=== PATIENT | female | born 1945 | race Caucasian/White ===

== ENCOUNTER 2017-02-13 19:34 | Outpatient (CLI) | payer MEDICARE ==
[2017-02-14 12:53] LABS: INR-International Normal Ratio 3.5; Prothrombin Time 37.2 SEC (12.0-14.7)
== END 2017-02-13 19:35 | disposition home or self-care (01) ==
LOC: BURLABSP 19:34
PROVIDERS: ATTEND Internal Medicine
DX: Z51.81 Encounter for therapeutic drug level monitoring (principal); Z79.01 Long term (current) use of anticoagulants
CPT/HCPCS: 85610

== ENCOUNTER 2018-07-17 10:23 | Inpatient (IN) | payer MEDICARE, MEDICAID ==
[2018-07-17 11:09] LABS: #Basophils 0.1 thou/uL (0.0-0.2); #Eosinphils 0.1 thou/uL (0.0-0.7); #Lymphocytes 1.6 thou/uL (1.20-3.40); #Monocytes 0.5 thou/uL (0.11-0.59); #Neutrophils 4.3 thou/uL (1.40-6.50); %Basophils 1.5 % (0.0-1.0); %Eosinophils 0.9 % (0.0-10.0); %Lymphocytes 24.1 % (21.0-51.0); %Monocytes 7.3 % (0.0-10.0); %Neutrophils 66.2 % (42.0-75.0); Hemoglobin 13.5 g/dL (12.0-16.0); Mean Corpuscular HGB CONC 34.4 g/dL (32.0-36.0); Mean Corpuscular Hemoglobin 29.2 pg (27.0-31.0); Mean Corpuscular Volume 84.9 fL (78.0-98.0); Mean Platelet Volume 8.8 fL (7.4-10.4); Platelet Count 156 thou/uL (130-400); RBC Distribution Width 13.6 % (11.5-14.5); Red Blood Cell (RBC) Count 4.61 mill/uL (4.20-5.40); White Blood Cell (WBC) Count 6.5 thou/uL (4.8-10.8)
[2018-07-17 11:25] LABS: ALT (SGPT) 25 U/L (8-55); AST (SGOT) 31 U/L (5-34); Albumin 3.5 g/dL (3.4-4.8); Alkaline Phosphatase 135 U/L (40-150); Anion Gap 15 mmol/L (10-20); BUN (Urea Nitrogen) 30 mg/dL (9.8-20.1); Bilirubin, Total 0.7 mg/dL (0.2-1.2); Calc. Creatinine Clearance 0 mL/min (70-130); Calcium 9.2 mg/dL (7.8-10.44); Carbon Dioxide 23 mmol/L (23-31); Chloride 102 mmol/L (98-107); Estimated GFR-MDRD 40; Globulin 4.4 g/dL (2.4-3.5); Glucose 211 mg/dL (83-110); Potassium 3.7 mmol/L (3.5-5.1); Protein, Total 7.9 g/dL (6.0-8.3); Sodium 136 mmol/L (136-145)
[2018-07-17] MEDS ORDERED: Acetaminophen 325 MG TAB PO PRN (11:45)
[2018-07-17] MEDS ORDERED: Ondansetron PF 4 MG/2 ML Vial IVP PRN (11:45)
[2018-07-17] MEDS ORDERED: Furosemide 40 MG/4 ML VIAL ONE (12:06)
[2018-07-17 14:13] VITALS: BMI 46.9
[2018-07-17] MEDS ORDERED: Warfarin Sodium 7.5 MG TAB PO SCH ×2 (17:00→22:00)
[2018-07-17] MEDS: LINZESS PO SCH (19:50)
[2018-07-17] MEDS: rOPINIRole HCl 2 MG TAB PO SCH (21:20)
[2018-07-17] MEDS: traMADol HCl 50 MG TAB PO SCH (21:26)
[2018-07-17] MEDS: tiZANidine HCl 4 MG TAB PO SCH (21:28)
[2018-07-17] MEDS: Torsemide 20 MG TAB PO SCH (21:28)
[2018-07-17] MEDS: Pravastatin Sodium 20 MG TAB PO SCH (21:29)
[2018-07-17] MEDS: Potassium Chloride 20 MEQ TAB PO SCH (21:30)
[2018-07-17] MEDS: Polyethylene Glycol 3350 17 GM Packet PO SCH (21:30)
[2018-07-18] MEDS: HYDROcodone/Acetaminophen 5/325 mg Tablet PO PRN ×2 (00:23→10:37)
[2018-07-18 05:01] LABS: INR-International Normal Ratio 2.3; Prothrombin Time 25.6 SEC (12.0-14.7)
[2018-07-18 05:02] LABS: Anion Gap 13 mmol/L (10-20); BUN (Urea Nitrogen) 26 mg/dL (9.8-20.1); Calc. Creatinine Clearance 106 mL/min (70-130); Chloride 102 mmol/L (98-107); Estimated GFR-MDRD 48; Glucose 114 mg/dL (83-110); Sodium 137 mmol/L (136-145)
[2018-07-18 05:12] LABS: #Basophils 0.1 thou/uL (0.0-0.2); #Eosinphils 0.1 thou/uL (0.0-0.7); #Lymphocytes 1.6 thou/uL (1.20-3.40); #Monocytes 0.7 thou/uL (0.11-0.59); %Basophils 1.3 % (0.0-1.0); %Lymphocytes 21.8 % (21.0-51.0); %Monocytes 8.8 % (0.0-10.0); %Neutrophils 67.1 % (42.0-75.0); Hemoglobin 12.5 g/dL (12.0-16.0); Mean Corpuscular HGB CONC 33.5 g/dL (32.0-36.0); Mean Corpuscular Hemoglobin 28.4 pg (27.0-31.0); Mean Corpuscular Volume 84.8 fL (78.0-98.0); Mean Platelet Volume 7.9 fL (7.4-10.4); Platelet Count 161 thou/uL (130-400); RBC Distribution Width 13.8 % (11.5-14.5); Red Blood Cell (RBC) Count 4.39 mill/uL (4.20-5.40); White Blood Cell (WBC) Count 7.5 thou/uL (4.8-10.8)
[2018-07-18 05:18] LABS: Carbon Dioxide 26 mmol/L (23-31)
[2018-07-18] MEDS: Levothyroxine Sodium 50 MCG TAB PO SCH (05:41)
[2018-07-18] MEDS: Potassium Chloride 20 MEQ TAB PO SCH ×3 (08:39→20:39)
[2018-07-18] MEDS: Alogliptin 25 MG TAB PO SCH (08:39)
[2018-07-18] MEDS: traMADol HCl 50 MG TAB PO SCH ×3 (08:40→20:39)
[2018-07-18] MEDS: Torsemide 20 MG TAB PO SCH ×3 (08:41→20:39)
[2018-07-18] MEDS: rOPINIRole HCl 2 MG TAB PO SCH ×2 (08:42→20:41)
[2018-07-18] MEDS: Spironolactone 25 MG TAB PO SCH ×2 (08:48→15:25)
[2018-07-18] MEDS: LINZESS PO SCH (08:54)
[2018-07-18] MEDS ORDERED: VICTOZA SC SCH ×2 (09:00→10:45)
[2018-07-18] MEDS ORDERED: LINZESS PO SCH (10:45)
[2018-07-18] MEDS ORDERED: VICTOZA 1.8 MG SC SCH (10:45)
[2018-07-18] MEDS ORDERED: Vancomycin HCl 1 GM in Sodium Chloride 0.9% 250 ML 250 ML IVPB SCH ×2 (12:00→13:00)
--- NOTE | 2018-07-18 12:21 | HP ---
PRIMARY CARE PHYSICIAN: Dr. Adame in [place]. COAL GRADER: Dr. Rogerio Balderas at [facility] in [place]. CHIEF COMPLAINT: Worsening cellulitis of both lower extremities. HISTORY OF PRESENT ILLNESS: Ms. Wheatley is a pleasant 73-year-old white female with diabetes mellitus; hypertension; atrial fibrillation, on Coumadin; CHF, systolic dysfunction; and venous insufficiency of both lower extremities with recurrent cellulitis requiring admissions. She presented to ED on 07/17/2018, complaining of worsening lower extremity cellulitis. Her condition started 2 weeks prior as sudden occurrence of redness, swelling, and blister formation on both lower extremities. She went and saw her mobile disc jockey, Dr. Balderas and was given daily doses of Rocephin along with oral antibiotics for 2 weeks. Her swelling and pain in both lower extremities worsen, hence consulted at [facility]. At emergency room, her vital signs showed BP of 147/80, pulse of 91, respiratory rate of 16, temperature of 97.6, O2 saturation of 99%. She has noticeable extensive erythema, swelling, and tenderness with blister formation on both lower extremities. Her labs demonstrated WBC of 6.5, hemoglobin of 13, hematocrit of 39, platelets of 156. Her electrolytes were within normal. BUN was 30, creatinine was 1.31, glucose was 211. BNP was 142. Due to failed outpatient treatment with 2 weeks of antibiotics and worsening appearance of her bilateral lower extremity cellulitis, she will be admitted for IV antibiotics. PAST MEDICAL HISTORY: 1. Hypertension. 2. Diabetes mellitus. 3. Congestive heart failure, systolic dysfunction. 4. Hypothyroidism. 5. Hyperlipidemia. 6. Chronic atrial fibrillation, on Coumadin. 7. Venous insufficiency of both lower extremities. 8. Frozen shoulder. PAST SURGICAL HISTORY: 1. Bilateral cataract surgery. 2. Cholecystectomy. 3. Tubal ligation. SOCIAL HISTORY: The patient denies alcohol or drug use. She lives by herself. Her oldest daughter recently in January due to complication from cerebral palsy. She has a daughter, who lives in [place]. She has provider services. She is under home health care. FAMILY HISTORY: Denies cancer or coronary artery disease. ALLERGIES: 1. CLINDAMYCIN. 2. BENADRYL. 3. METHYLPHENIDATE. 4. PENICILLIN. MEDICATIONS: 1. Aldactone 50 mg 1 tablet in a.m. and 1/2 tablet in the afternoon. 2. Metoprolol 25 mg b.i.d. 3. Ropinirole 3 mg 1.5 tablets b.i.d. 4. Coumadin 7.5 mg 1 tablet daily and 1/2 tablet on Monday, Monday, and Monday. 5. Pravastatin 10 mg at bedtime. 6. Torsemide 20 mg t.i.d. 7. Potassium chloride 20 mEq t.i.d. 8. Tizanidine 4 mg once a day. 9. Tramadol 50 mg t.i.d. 10. Levothyroxine 50 mcg 1/2 tablet once a day. 11. Linzess 290 mcg 1 tablet daily. 12. Glimepiride 4 mg b.i.d. 13. Januvia 50 mg once a day. 14. Victoza 0.6 mg subcutaneous injection daily. 15. Omeprazole 40 mg daily. REVIEW OF SYSTEMS: GENERAL: Positive for fatigue. Negative for fever. Negative for chills. EYES: Positive for blurred vision. Negative for eye irritation. NOSE AND THROAT: Negative for sore throat. Negative for nasal congestion. CARDIOVASCULAR: Negative for chest pain. Negative for palpitation. Positive for diffuse swelling of both lower extremities. PULMONARY: Negative for cough. Negative for wheezing. Positive for shortness of breath on exertion related to her congestive heart failure. ABDOMEN: Negative for nausea, vomiting, diarrhea, or constipation. Negative for abdominal pain. MUSCULOSKELETAL: Positive for chronic lower back pain. Positive for decreased range of motion. Negative for swollen joints. PHYSICAL EXAM VITAL SIGNS: BP: 104/55 RR:18 IN: 72 Temp: 97.8 GENERAL: Alert, oriented, not in respiratory distress HEENT: Normocephalic, atraumatic NECK: Supple, no LADP CHEST: Symmetrical, clear to auscultation HEART: Regular rate and rhythm, no murmur, rubs or gallops ABDOMEN: Distended, NABS, soft non tender INTEGUMENT: Positive for diffuse erythema, with thickened skin and blisters formation that are weeping on both lower extremities. PSYCHIATRIC: Appropriate affect and demeanor. LABORATORY DATA: Reviewed. ASSESSMENT: 1. Bilateral lower extremity cellulitis, failed outpatient treatment. 2. Chronic LE venous hypertension with insufficiency with recurrent cellulitis requiring IV antibiotics. 3. Hypertension. 4. Diabetes mellitus. 5. Congestive heart failure, systolic dysfunction. 6. Chronic atrial fibrillation, on Coumadin. 7. Hyperlipidemia. 8. Hypothyroidism. 9. Morbid obesity. PLAN: 1. Continue present IV vancomycin. 2. Symptomatic medication for pain. 3. Reconcile home medication. 4. Morning labs ordered. 5. Discharge to home once clinically stable and improved symptoms. Job ID: [id number] MTDD
[2018-07-18] MEDS: Ondansetron ODT 4 MG TAB SL PRN (16:50)
[2018-07-18] MEDS: Warfarin Sodium 5 MG TAB PO SCH (17:00)
[2018-07-18] MEDS: Glimepiride 2 MG TAB PO SCH ×2 (17:08→23:17)
[2018-07-18] MEDS: Polyethylene Glycol 3350 17 GM Packet PO SCH (20:38)
[2018-07-18] MEDS: tiZANidine HCl 4 MG TAB PO SCH (20:39)
[2018-07-18] MEDS: Pravastatin Sodium 20 MG TAB PO SCH (20:40)
[2018-07-18] MEDS ORDERED: traZODone HCl 50 MG TAB PO SCH (21:00)
[2018-07-19] MEDS: HYDROcodone/Acetaminophen 5/325 mg Tablet PO PRN ×2 (04:20→14:49)
[2018-07-19] MEDS: Levothyroxine Sodium 50 MCG TAB PO SCH (05:39)
[2018-07-19 06:32] LABS: INR-International Normal Ratio 2.4; Prothrombin Time 25.8 SEC (12.0-14.7)
[2018-07-19] MEDS: LINACLOTIDE (LINZESS) 290 MCG CAPSULE PO SCH (08:17)
[2018-07-19] MEDS: Spironolactone 25 MG TAB PO SCH ×2 (09:18→14:42)
[2018-07-19] MEDS: Alogliptin 25 MG TAB PO SCH (09:19)
[2018-07-19] MEDS: Glimepiride 2 MG TAB PO SCH ×2 (09:20→20:31)
[2018-07-19] MEDS: Potassium Chloride 20 MEQ TAB PO SCH ×3 (09:21→20:32)
[2018-07-19] MEDS: rOPINIRole HCl 2 MG TAB PO SCH ×2 (09:22→20:34)
[2018-07-19] MEDS: traMADol HCl 50 MG TAB PO SCH ×3 (09:23→20:33)
[2018-07-19] MEDS: Torsemide 20 MG TAB PO SCH ×3 (09:23→20:31)
[2018-07-19] MEDS: LIRAGLUTIDE 18 MG/3 ML SC SCH (09:38)
[2018-07-19 11:22] LABS: Vancomycin, Trough 36.1 ug/mL
[2018-07-19] MEDS ORDERED: VANCOMYCIN IVPB PRN (11:34)
[2018-07-19] MEDS ORDERED: Warfarin Sodium 7.5 MG TAB PO SCH (17:00)
[2018-07-19] MEDS ORDERED: traZODone HCl 50 MG TAB PO PRN (19:48)
--- NOTE | 2018-07-19 20:10 | PRG ---
DATE OF SERVICE: 07/18/2018 SUBJECTIVE: The patient is doing well. Her pain on both legs are slightly improved, less redness and swelling. PHYSICAL EXAMINATION: VITAL SIGNS: Blood pressure of 104/55, temperature of 97.8, pulse of 72, respiratory rate of 18, and O2 saturation 99%. GENERAL: The patient is alert, oriented, not in respiratory distress. HEENT: Normocephalic, atraumatic. Pupils are equal, reactive to light. NECK: Supple. Negative for lymphadenopathy. CHEST AND LUNGS: Symmetrical expansion. Clear to auscultation. HEART: Regular rate and rhythm. Negative for murmur. ABDOMEN: Distended, soft. Normoactive bowel sounds. MUSCULOSKELETAL: Positive for decreased range of motion of both lower extremities, secondary to pain. INTEGUMENT: Positive for diffuse erythema on both lower legs with blister and weeping noted. PSYCH: Appropriate affect and demeanor. LABORATORY DATA: WBC of 7.5, hemoglobin of 12, hematocrit of 37.3, and platelets of 161. BMP; sodium of 137, potassium of 4, chloride of 102, carbon dioxide of 26, BUN of 26, and creatinine of 1.10. ASSESSMENT: 1. Bilateral lower extremity cellulitis, failed outpatient treatment. 2. Chronic lower extremity venous hypertension with insufficiency with recurrent cellulitis, requiring IV antibiotics. 3. Hypertension. 4. Diabetes mellitus. 5. Congestive heart failure, systolic dysfunction. 6. Chronic atrial fibrillation, on Coumadin. 7. Hyperlipidemia. 8. Hypothyroidism. 9. Morbid obesity. PLAN: 1. Continue present IV antibiotics. 2. Symptomatic medication for pain, may need stronger opioids to control pain. 3. Discharge to home once clinically stable and improved symptoms. Job ID: [id number]
[2018-07-19] MEDS: Pravastatin Sodium 20 MG TAB PO SCH (20:32)
[2018-07-19] MEDS: tiZANidine HCl 4 MG TAB PO SCH (20:32)
--- NOTE | 2018-07-19 20:49 | PRG ---
DATE OF SERVICE: 07/19/2018 SUBJECTIVE: The patient is complaining of intermittent dull aching pain in the right lower extremity, worse on the left, not improved with tramadol and then the patient was complaining of insomnia the other night that was improved with trazodone. She denies any fever. Appetite is at baseline. OBJECTIVE: VITAL SIGNS: Blood pressure 115/58, temperature 97.9, pulse of 70, RR 20, and O2 saturation 99% on room air. GENERAL: The patient is alert and oriented. Morbidly obese. HEENT: Normocephalic and atraumatic. Pupils are equal and reactive to light. NECK: Supple. Negative for lymphadenopathy. CHEST AND LUNGS: Symmetrical expansion. Clear to auscultation. HEART: Regular rate and rhythm. Negative for murmur. ABDOMEN: Distended. Normoactive bowel sounds. Negative for rebound tenderness. Positive for erythema on the lower abdomen and pelvic region, slightly tender, worse on the left side. EXTREMITIES: Diffuse erythema on both lower extremities, improved from the day of admission. SKIN: Thickened with blister formation, tender on palpation. PSYCH: Appropriate affect and demeanor. LABORATORY DATA: Labs reviewed. ASSESSMENT: 1. Bilateral lower extremities cellulitis, failed outpatient treatment. 2. Chronic lower extremity venous hypertension with insufficiency with recurrent cellulitis requiring IV antibiotics. 3. Hypertension. 4. Diabetes mellitus. 5. Congestive heart failure, systolic dysfunction. 6. Chronic atrial fibrillation, on Coumadin. 7. Hyperlipidemia. 8. Hypothyroidism. 9. Morbid obesity. 10. Insomnia. PLAN: 1. Review pain medication, optimized [place] if needed. 2. Decrease dose of trazodone to 25 mg nightly p.r.n. for insomnia. 3. We will transfer the patient to custodial care for IV antibiotics tomorrow 07/20/18. Job ID: [id number] MTDD
[2018-07-19] MEDS: Polyethylene Glycol 3350 17 GM Packet PO SCH (20:58)
[2018-07-19 23:13] LABS: Vancomycin, Random 29.9 ug/mL (See Comment)
[2018-07-20] MEDS: HYDROcodone/Acetaminophen 5/325 mg Tablet PO PRN (04:57)
[2018-07-20] MEDS: Levothyroxine Sodium 50 MCG TAB PO SCH (04:58)
[2018-07-20 05:15] LABS: Hemoglobin 12.6 g/dL (12.0-16.0); Platelet Count 128 thou/uL (130-400)
[2018-07-20 05:16] LABS: INR-International Normal Ratio 2.5; Prothrombin Time 27.1 SEC (12.0-14.7)
[2018-07-20] MEDS: Glimepiride 2 MG TAB PO SCH ×2 (08:59→21:31)
[2018-07-20] MEDS: Torsemide 20 MG TAB PO SCH ×3 (09:00→21:32)
[2018-07-20] MEDS: Potassium Chloride 20 MEQ TAB PO SCH ×3 (09:01→21:33)
[2018-07-20] MEDS: rOPINIRole HCl 2 MG TAB PO SCH (09:01)
[2018-07-20] MEDS: Alogliptin 25 MG TAB PO SCH (09:03)
[2018-07-20] MEDS: Spironolactone 25 MG TAB PO SCH ×2 (09:04→14:57)
[2018-07-20] MEDS: LINACLOTIDE (LINZESS) 290 MCG CAPSULE PO SCH (09:05)
[2018-07-20] MEDS ORDERED: traMADol HCl 50 MG TAB ONE (09:15)
[2018-07-20] MEDS: traMADol HCl 50 MG TAB PO SCH ×3 (09:16→20:00)
[2018-07-20] MEDS: LIRAGLUTIDE 18 MG/3 ML SC SCH (09:20)
[2018-07-20 12:24] LABS: Vancomycin, Random 29.4 ug/mL (See Comment)
[2018-07-20] MEDS ORDERED: Vancomycin HCl 1 GM in Sodium Chloride 0.9% 250 ML 250 ML IVPB SCH (13:00)
[2018-07-20] MEDS: Ondansetron ODT 4 MG TAB SL PRN ×2 (14:10→21:30)
[2018-07-20] MEDS: Warfarin Sodium 5 MG TAB PO SCH (17:04)
[2018-07-20 17:13] VITALS: BP 120/56; TEMP 97.4
[2018-07-20] MEDS ORDERED: Dextrose 50% Abboject 50 ML SYRINGE SLOW IVP PRN (17:57)
[2018-07-20] MEDS ORDERED: HumaLOG 300 UNITS/3 ML VIAL SC PRN (17:57)
[2018-07-20] MEDS ORDERED: Dextrose 5% in Water 1,000 ML IV PRN (17:57)
[2018-07-20] MEDS: tiZANidine HCl 4 MG TAB PO SCH (20:00)
[2018-07-20] MEDS ORDERED: rOPINIRole HCl 2 MG TAB PO SCH (21:00)
[2018-07-20] MEDS ORDERED: rOPINIRole HCl 0.25 MG TAB PO SCH (21:00)
[2018-07-20] MEDS: Polyethylene Glycol 3350 17 GM Packet PO SCH (21:28)
[2018-07-20] MEDS: Pravastatin Sodium 20 MG TAB PO SCH (21:32)
[2018-07-21] MEDS ORDERED: Levothyroxine Sodium 50 MCG TAB PO SCH (06:00)
[2018-07-21] MEDS ORDERED: Glimepiride 2 MG TAB PO SCH (09:00)
--- NOTE | 2018-07-21 18:40 | DIS ---
DATE OF ADMISSION: 07/17/2018 DATE OF DISCHARGE: 07/20/2018 This is a transfer note to nursing home care for IV antibiotics. FINAL DIAGNOSES: 1. Bilateral lower extremity cellulitis, failed outpatient treatment. 2. Chronic lower extremity venous hypertension with insufficiency with recurrent cellulitis, requiring IV antibiotics. 3. Hypertension. 4. Diabetes mellitus. 5. Congestive heart failure, systolic dysfunction. 6. Chronic atrial fibrillation, on Coumadin. 7. Hyperlipidemia. 8. Hypothyroidism. 9. Morbid obesity. 10. Gait instability. 11. Insomnia. HOSPITAL COURSE: The patient was admitted on 07/17/2018, complaining of worsening lower extremity cellulitis. Her condition started 2 weeks prior as sudden occurrence of redness, swelling, and blister formation on both lower extremities. She went and saw her paperboard boxes estimator, Dr. Rogerio Balderas at [facility] in [place] and was given daily doses of Rocephin along with oral antibiotics for 2 weeks. Her swelling and pain in both lower extremities worsen. Hence, she consulted [facility]. Her vital signs were stable on admission. However, noticeable was extensive erythema, swelling, and tenderness with blister formation on both legs. Due to failed outpatient treatment, the patient was admitted for IV antibiotics. During her stay in acute care, the patient did well. Her appetite has slightly improved except for mild nausea. Her swelling on both legs and redness have both improved. Her vancomycin was held starting from 07/19, due to high vancomycin trough. She will be moved to swing bed for IV antibiotics for treatment of complicated cellulitis of both lower extremities. We will need to reconcile her medication. DISPOSITION: Transferred to nursing home care for IV antibiotics. ACTIVITY: As tolerated. DIET: Carb consistent diet of 1800 calories. MEDICATIONS: See list. Job ID: [id number]
== END 2018-07-20 23:54 | disposition swing bed (61) | DRG 603 ==
LOC: BURERS 10:23 → BURMED 12:08
PROVIDERS: ADMIT Family Medicine; ATTEND Family Medicine
DX: L03.116 Cellulitis of left lower limb (principal); I50.20 Unspecified systolic (congestive) heart failure; Z68.42 Body mass index [BMI] 45.0-49.9, adult; L03.115 Cellulitis of right lower limb; E11.9 Type 2 diabetes mellitus without complications; I11.0 Hypertensive heart disease with heart failure; E03.9 Hypothyroidism, unspecified; E78.5 Hyperlipidemia, unspecified; I87.2 Venous insufficiency (chronic) (peripheral); I48.2 Chronic atrial fibrillation; E66.01 Morbid (severe) obesity due to excess calories; G47.00 Insomnia, unspecified; I87.309 Chronic venous hypertension (idiopathic) without complications of unspecified lower extremity; Z98.41 Cataract extraction status, right eye; Z98.42 Cataract extraction status, left eye; Z90.49 Acquired absence of other specified parts of digestive tract; Z98.51 Tubal ligation status; Z88.0 Allergy status to penicillin; Z88.1 Allergy status to other antibiotic agents; Z88.8 Allergy status to other drugs, medicaments and biological substances; Z79.01 Long term (current) use of anticoagulants; Z79.899 Other long term (current) drug therapy
CPT/HCPCS: 36415; 36416; 80048; 80053; 80202; 83880; 85014; 85018; 85025; 85049; 85610; 96374; 96375; J1940; J2405; J3370; J7050; Q0162

== ENCOUNTER 2018-07-20 23:54 | Inpatient (IN) | payer MEDICARE, MEDICAID ==
[2018-07-21] MEDS ORDERED: traZODone HCl 50 MG TAB PO PRN (01:35)
[2018-07-21] MEDS: HYDROcodone/Acetaminophen 5/325 mg Tablet PO PRN ×2 (03:29→13:49)
[2018-07-21] MEDS: Levothyroxine Sodium 50 MCG TAB PO SCH (06:24)
[2018-07-21] MEDS ORDERED: Dextrose 5% in Water 1,000 ML IV PRN (08:02)
[2018-07-21] MEDS ORDERED: HumaLOG 300 UNITS/3 ML VIAL SC PRN (08:02)
[2018-07-21] MEDS ORDERED: Dextrose 50% Abboject 50 ML SYRINGE SLOW IVP PRN (08:02)
[2018-07-21] MEDS: Spironolactone 25 MG TAB PO SCH ×2 (08:34→15:06)
[2018-07-21] MEDS: Torsemide 20 MG TAB PO SCH ×3 (08:34→20:49)
[2018-07-21] MEDS: Glimepiride 2 MG TAB PO SCH ×2 (08:35→20:50)
[2018-07-21] MEDS: Potassium Chloride 20 MEQ TAB PO SCH ×3 (08:36→20:47)
[2018-07-21] MEDS: rOPINIRole HCl 0.25 MG TAB PO SCH ×2 (08:36→20:48)
[2018-07-21] MEDS: Alogliptin 25 MG TAB PO SCH (08:37)
[2018-07-21] MEDS: rOPINIRole HCl 2 MG TAB PO SCH ×2 (08:40→20:49)
[2018-07-21] MEDS: traMADol HCl 50 MG TAB PO SCH ×3 (08:41→20:47)
[2018-07-21] MEDS: LINACLOTIDE (LINZESS) 290 MCG CAPSULE PO SCH (08:45)
[2018-07-21] MEDS: LIRAGLUTIDE 18 MG/3 ML SC SCH (08:48)
[2018-07-21 09:46] LABS: #Basophils 0.1 thou/uL (0.0-0.2); #Eosinphils 0.1 thou/uL (0.0-0.7); #Lymphocytes 1.6 thou/uL (1.20-3.40); #Monocytes 0.4 thou/uL (0.11-0.59); #Neutrophils 3.5 thou/uL (1.40-6.50); %Basophils 1.2 % (0.0-1.0); %Eosinophils 1.6 % (0.0-10.0); %Lymphocytes 28.3 % (21.0-51.0); %Neutrophils 61.9 % (42.0-75.0); Hemoglobin 13.4 g/dL (12.0-16.0); Mean Corpuscular HGB CONC 32.1 g/dL (32.0-36.0); Mean Corpuscular Hemoglobin 27.5 pg (27.0-31.0); Mean Corpuscular Volume 85.8 fL (78.0-98.0); Platelet Count 187 thou/uL (130-400); RBC Distribution Width 13.5 % (11.5-14.5); Red Blood Cell (RBC) Count 4.85 mill/uL (4.20-5.40); White Blood Cell (WBC) Count 5.7 thou/uL (4.8-10.8)
[2018-07-21 09:59] LABS: ALT (SGPT) 31 U/L (8-55); AST (SGOT) 40 U/L (5-34); Albumin 3.8 g/dL (3.4-4.8); Alkaline Phosphatase 170 U/L (40-150); Anion Gap 14 mmol/L (10-20); BUN (Urea Nitrogen) 25 mg/dL (9.8-20.1); Bilirubin, Total 0.9 mg/dL (0.2-1.2); Calc. Creatinine Clearance 86 mL/min (70-130); Calcium 9.5 mg/dL (7.8-10.44); Carbon Dioxide 26 mmol/L (23-31); Chloride 97 mmol/L (98-107); Estimated GFR-MDRD 38; Globulin 4.6 g/dL (2.4-3.5); Glucose 150 mg/dL (83-110); Potassium 4.3 mmol/L (3.5-5.1); Protein, Total 8.4 g/dL (6.0-8.3); Sodium 133 mmol/L (136-145)
[2018-07-21 12:47] LABS: Vancomycin, Trough 26.7 ug/mL
[2018-07-21] MEDS: Warfarin Sodium 7.5 MG TAB PO SCH (17:32)
[2018-07-21] MEDS: Polyethylene Glycol 3350 17 GM Packet PO SCH (20:46)
[2018-07-21] MEDS: Pravastatin Sodium 20 MG TAB PO SCH (20:47)
[2018-07-21] MEDS: tiZANidine HCl 4 MG TAB PO SCH (20:50)
[2018-07-22 05:50] LABS: Prothrombin Time 31.1 SEC (12.0-14.7)
[2018-07-22] MEDS: Levothyroxine Sodium 50 MCG TAB PO SCH (06:02)
[2018-07-22] MEDS: Torsemide 20 MG TAB PO SCH ×3 (09:31→20:51)
[2018-07-22] MEDS: rOPINIRole HCl 0.25 MG TAB PO SCH ×2 (09:31→20:51)
[2018-07-22] MEDS: Glimepiride 2 MG TAB PO SCH ×2 (09:32→20:53)
[2018-07-22] MEDS: Potassium Chloride 20 MEQ TAB PO SCH ×3 (09:32→20:52)
[2018-07-22] MEDS: rOPINIRole HCl 2 MG TAB PO SCH ×2 (09:33→20:54)
[2018-07-22] MEDS: Spironolactone 25 MG TAB PO SCH ×2 (09:33→14:46)
[2018-07-22] MEDS: Alogliptin 25 MG TAB PO SCH (09:34)
[2018-07-22] MEDS: LINACLOTIDE (LINZESS) 290 MCG CAPSULE PO SCH (09:36)
[2018-07-22] MEDS: traMADol HCl 50 MG TAB PO SCH ×3 (09:38→20:50)
[2018-07-22] MEDS: LIRAGLUTIDE 18 MG/3 ML SC SCH (09:44)
[2018-07-22 12:23] LABS: Vancomycin, Random 21.2 ug/mL (See Comment)
[2018-07-22] MEDS: Ondansetron ODT 4 MG TAB SL PRN (13:30)
[2018-07-22] MEDS: HYDROcodone/Acetaminophen 5/325 mg Tablet PO PRN (13:30)
[2018-07-22] MEDS: Warfarin Sodium 7.5 MG TAB PO SCH (18:10)
[2018-07-22] MEDS: Piperacillin/Tazobactam 3.375 GM in Sodium Chloride 0.9% 100 ML IVPB SCH ×2 (18:31→23:36)
[2018-07-22] MEDS: Pravastatin Sodium 20 MG TAB PO SCH (20:52)
[2018-07-22] MEDS: tiZANidine HCl 4 MG TAB PO SCH (20:52)
[2018-07-22] MEDS: Polyethylene Glycol 3350 17 GM Packet PO SCH (20:53)
[2018-07-23 03:06] VITALS: BMI 45.4
[2018-07-23 05:13] LABS: INR-International Normal Ratio 3.3; Prothrombin Time 33.6 SEC (12.0-14.7)
[2018-07-23] MEDS: Levothyroxine Sodium 50 MCG TAB PO SCH (05:47)
[2018-07-23] MEDS: Piperacillin/Tazobactam 3.375 GM in Sodium Chloride 0.9% 100 ML IVPB SCH ×4 (05:49→23:48)
--- NOTE | 2018-07-23 08:04 | HP ---
Transferred from acute care to detention facility. PRIMARY CARE PHYSICIAN: Dr. Adame in [place]. MANAGER TRAVEL: Dr. Rogerio Balderas at [facility] in [place]. CHIEF COMPLAINT: Complicated cellulitis of bilateral lower extremities, failed outpatient treatment. HISTORY OF PRESENT ILLNESS: The patient was admitted on 07/17/2018, for complaining of worsening lower extremity cellulitis, she was started on vancomycin IV; however, it was held on 07/19, up to this day, due to elevated vancomycin trough. Her legs are significantly improved, redness and swelling have decreased significantly. However, she still has a noticeable blister formation on the right medial aspect. She is afebrile with stable vital signs, she has a couple of low blood glucose readings, which she attributed to poor appetite and nausea after she eats. She is requesting to adjust her medication for diabetes. PAST MEDICAL HISTORY: 1. Hypertension. 2. Diabetes mellitus. 3. Congestive heart failure, systolic dysfunction. 4. Hypothyroidism. 5. Hyperlipidemia. 6. Chronic atrial fibrillation, on Coumadin. 7. Venous insufficiency of both lower extremities. 8. Recurrent bilateral lower extremity cellulitis. 9. Frozen shoulder. PAST SURGICAL HISTORY: 1. Bilateral cataract surgery. 2. Cholecystectomy. 3. Tubal ligation. SOCIAL HISTORY: The patient denies alcohol or drug use. She lives by herself. Her oldest daughter recently in January due to complication from cerebral palsy. She has a daughter who lives in [place]. She has provider services and was previously under home health care. She has a granddaughter, who works at [employer] as an x-ray tech. FAMILY HISTORY: Denies cancer or coronary artery disease. ALLERGIES: CLINDAMYCIN, BENADRYL, METHYLPHENIDATE, AND PENICILLIN. MEDICATIONS: See list. REVIEW OF SYSTEMS: CONSTITUTIONAL: Positive for fatigue, positive for decreased appetite. Negative for fever. Negative for chills. EYES: Positive for blurred vision. Negative for eye irritation. NOSE AND THROAT: Negative for sore throat. Negative for nasal congestion. CARDIOVASCULAR: Negative for chest pain. Negative for palpitation. Positive for diffuse swelling on both lower extremities secondary to venous insufficiency. PULMONARY: Negative for cough. Negative for wheezing. Positive for shortness of breath on exertion related to her congestive heart failure. GI: Negative for nausea, vomiting, diarrhea, or constipation. Negative for abdominal pain. MUSCULOSKELETAL: Positive for chronic lower back pain with decreased range of motion. Negative for swollen joints. PHYSICAL EXAMINATION: VITAL SIGNS: Blood pressure of 120/56, temperature of 97.4, pulse of 75, respirations of 20, O2 saturation 98% on room air. GENERAL: The patient is alert, oriented, not in respiratory distress, morbidly obese. NECK: Supple. Negative for lymphadenopathy. CHEST AND LUNGS: Symmetrical expansion. Clear to auscultation. HEART: Regular rate and rhythm. Negative for murmur, rubs, or gallops. ABDOMEN: Distended. Normoactive bowel sounds. Nontender. No CVA tenderness. INTEGUMENT: Positive for diffuse erythema with thickened skin and blister formation that are not weeping on both lower extremities. Negative for tenderness. Negative for Homans sign. PSYCHIATRIC: Appropriate affect and demeanor. LABORATORY DATA: Labs reviewed. ASSESSMENT: 1. Bilateral lower extremity cellulitis, failed outpatient treatment. 2. Chronic lower extremity venous hypertension with insufficiency, with recurrent cellulitis requiring IV antibiotics. 3. Hypertension. 4. Diabetes mellitus. 5. Congestive heart failure with systolic dysfunction. 6. Chronic atrial fibrillation, on Coumadin. 7. Hyperlipidemia. 8. Hypothyroidism. 9. Morbid obesity. PLAN: 1. She will likely require 2 to 3 more days of vancomycin once her vancomycin trough improved. We will continue present home medication, adjusted her glimepiride due to low fasting blood glucose level. 2. Refer to director of casework department to assist with discharge planning. Morning labs are requested. Job ID: [id number]
[2018-07-23] MEDS: Alogliptin 25 MG TAB PO SCH (08:56)
[2018-07-23] MEDS: rOPINIRole HCl 0.25 MG TAB PO SCH ×2 (08:57→21:26)
[2018-07-23] MEDS: Potassium Chloride 20 MEQ TAB PO SCH ×3 (08:57→21:24)
[2018-07-23] MEDS: rOPINIRole HCl 2 MG TAB PO SCH ×2 (08:58→21:26)
[2018-07-23] MEDS: Glimepiride 2 MG TAB PO SCH ×2 (08:59→21:24)
[2018-07-23] MEDS: Spironolactone 25 MG TAB PO SCH ×2 (09:00→14:32)
[2018-07-23] MEDS: traMADol HCl 50 MG TAB PO SCH ×3 (09:00→21:25)
[2018-07-23] MEDS: Torsemide 20 MG TAB PO SCH ×3 (09:15→21:24)
[2018-07-23] MEDS: LINACLOTIDE (LINZESS) 290 MCG CAPSULE PO SCH (09:17)
[2018-07-23] MEDS: LIRAGLUTIDE 18 MG/3 ML SC SCH (09:42)
[2018-07-23] MEDS: Ondansetron ODT 4 MG TAB SL PRN (11:05)
[2018-07-23] MEDS: HYDROcodone/Acetaminophen 5/325 mg Tablet PO PRN (11:40)
[2018-07-23] MEDS ORDERED: Warfarin Sodium 5 MG TAB PO SCH (17:00)
[2018-07-23] MEDS: Polyethylene Glycol 3350 17 GM Packet PO SCH (21:23)
[2018-07-23] MEDS: Pravastatin Sodium 20 MG TAB PO SCH (21:24)
[2018-07-23] MEDS: tiZANidine HCl 4 MG TAB PO SCH (21:24)
[2018-07-24] MEDS: Warfarin Sodium 7.5 MG TAB PO SCH (05:00)
[2018-07-24 05:15] LABS: INR-International Normal Ratio 3.5; Prothrombin Time 34.9 SEC (12.0-14.7)
[2018-07-24 05:17] LABS: Anion Gap 11 mmol/L (10-20); BUN (Urea Nitrogen) 22 mg/dL (9.8-20.1); Calc. Creatinine Clearance 86 mL/min (70-130); Calcium 9.1 mg/dL (7.8-10.44); Carbon Dioxide 28 mmol/L (23-31); Chloride 98 mmol/L (98-107); Estimated GFR-MDRD 39; Glucose 105 mg/dL (83-110); Potassium 3.9 mmol/L (3.5-5.1); Sodium 133 mmol/L (136-145)
[2018-07-24] MEDS: Piperacillin/Tazobactam 3.375 GM in Sodium Chloride 0.9% 100 ML IVPB SCH ×3 (06:18→17:01)
[2018-07-24] MEDS: Levothyroxine Sodium 50 MCG TAB PO SCH (06:18)
[2018-07-24] MEDS: Torsemide 20 MG TAB PO SCH ×3 (08:41→20:36)
[2018-07-24] MEDS: rOPINIRole HCl 0.25 MG TAB PO SCH ×2 (08:41→20:37)
[2018-07-24] MEDS: Alogliptin 25 MG TAB PO SCH (08:41)
[2018-07-24] MEDS: Potassium Chloride 20 MEQ TAB PO SCH ×3 (08:43→20:36)
[2018-07-24] MEDS: rOPINIRole HCl 2 MG TAB PO SCH ×2 (08:43→20:38)
[2018-07-24] MEDS: traMADol HCl 50 MG TAB PO SCH ×3 (08:43→20:36)
[2018-07-24] MEDS: Spironolactone 25 MG TAB PO SCH ×2 (08:44→14:30)
[2018-07-24] MEDS: Glimepiride 2 MG TAB PO SCH ×2 (08:44→20:36)
[2018-07-24] MEDS: LINACLOTIDE (LINZESS) 290 MCG CAPSULE PO SCH (09:02)
[2018-07-24] MEDS: LIRAGLUTIDE 18 MG/3 ML SC SCH (09:04)
[2018-07-24] MEDS: HYDROcodone/Acetaminophen 5/325 mg Tablet PO PRN (10:07)
[2018-07-24] MEDS: Pravastatin Sodium 20 MG TAB PO SCH (20:37)
[2018-07-24] MEDS: tiZANidine HCl 4 MG TAB PO SCH (20:37)
[2018-07-24] MEDS: Polyethylene Glycol 3350 17 GM Packet PO SCH (20:39)
[2018-07-25] MEDS: Piperacillin/Tazobactam 3.375 GM in Sodium Chloride 0.9% 100 ML IVPB SCH ×5 (00:13→23:58)
[2018-07-25] MEDS: Levothyroxine Sodium 50 MCG TAB PO SCH (05:14)
[2018-07-25 05:19] LABS: INR-International Normal Ratio 3.6; Prothrombin Time 35.5 SEC (12.0-14.7)
[2018-07-25] MEDS: Spironolactone 25 MG TAB PO SCH ×2 (09:30→15:07)
[2018-07-25] MEDS: Torsemide 20 MG TAB PO SCH ×3 (09:30→21:24)
[2018-07-25] MEDS: Potassium Chloride 20 MEQ TAB PO SCH ×3 (09:30→21:24)
[2018-07-25] MEDS: rOPINIRole HCl 2 MG TAB PO SCH ×2 (09:30→23:00)
[2018-07-25] MEDS: traMADol HCl 50 MG TAB PO SCH ×3 (09:30→21:24)
[2018-07-25] MEDS: Alogliptin 25 MG TAB PO SCH (09:30)
[2018-07-25] MEDS: LINACLOTIDE (LINZESS) 290 MCG CAPSULE PO SCH (09:30)
[2018-07-25] MEDS: rOPINIRole HCl 0.25 MG TAB PO SCH ×2 (09:30→21:24)
[2018-07-25] MEDS: Glimepiride 2 MG TAB PO SCH ×2 (09:30→21:23)
[2018-07-25] MEDS: Polyethylene Glycol 3350 17 GM Packet PO SCH (10:00)
[2018-07-25] MEDS: Ondansetron ODT 4 MG TAB SL PRN ×2 (12:25→18:13)
[2018-07-25] MEDS: LIRAGLUTIDE 18 MG/3 ML SC SCH (14:32)
[2018-07-25] MEDS ORDERED: Warfarin Sodium 5 MG TAB PO SCH (17:00)
[2018-07-25] MEDS: tiZANidine HCl 4 MG TAB PO SCH (21:23)
[2018-07-25] MEDS: Pravastatin Sodium 20 MG TAB PO SCH (21:23)
[2018-07-26 05:10] LABS: INR-International Normal Ratio 3.3; Prothrombin Time 33.2 SEC (12.0-14.7)
[2018-07-26] MEDS: Levothyroxine Sodium 50 MCG TAB PO SCH (05:10)
[2018-07-26] MEDS: Piperacillin/Tazobactam 3.375 GM in Sodium Chloride 0.9% 100 ML IVPB SCH ×3 (05:11→17:40)
[2018-07-26] MEDS: LINACLOTIDE (LINZESS) 290 MCG CAPSULE PO SCH (09:07)
[2018-07-26] MEDS: LIRAGLUTIDE 18 MG/3 ML SC SCH (09:10)
[2018-07-26] MEDS: rOPINIRole HCl 0.25 MG TAB PO SCH ×2 (09:12→20:41)
[2018-07-26] MEDS: Alogliptin 25 MG TAB PO SCH (09:13)
[2018-07-26] MEDS: Torsemide 20 MG TAB PO SCH ×3 (09:14→20:38)
[2018-07-26] MEDS: traMADol HCl 50 MG TAB PO SCH ×3 (09:14→20:40)
[2018-07-26] MEDS: Glimepiride 2 MG TAB PO SCH ×2 (09:15→20:38)
[2018-07-26] MEDS: Spironolactone 25 MG TAB PO SCH ×2 (09:16→14:51)
[2018-07-26] MEDS: Potassium Chloride 20 MEQ TAB PO SCH ×3 (09:16→20:38)
[2018-07-26] MEDS: rOPINIRole HCl 2 MG TAB PO SCH ×2 (10:21→20:39)
[2018-07-26] MEDS: Ondansetron ODT 4 MG TAB SL PRN (10:24)
[2018-07-26] MEDS ORDERED: Warfarin Sodium 7.5 MG TAB PO SCH (17:00)
[2018-07-26] MEDS: Polyethylene Glycol 3350 17 GM Packet PO SCH (20:38)
[2018-07-26] MEDS: Pravastatin Sodium 20 MG TAB PO SCH (20:39)
[2018-07-26] MEDS: tiZANidine HCl 4 MG TAB PO SCH (20:41)
[2018-07-27] MEDS: HYDROcodone/Acetaminophen 5/325 mg Tablet PO PRN (00:06)
[2018-07-27] MEDS: Piperacillin/Tazobactam 3.375 GM in Sodium Chloride 0.9% 100 ML IVPB SCH ×4 (00:08→18:40)
[2018-07-27] MEDS: Levothyroxine Sodium 50 MCG TAB PO SCH (05:37)
[2018-07-27 05:41] LABS: INR-International Normal Ratio 2.7; Prothrombin Time 28.8 SEC (12.0-14.7)
[2018-07-27] MEDS: Spironolactone 25 MG TAB PO SCH ×2 (08:45→14:45)
[2018-07-27] MEDS: rOPINIRole HCl 2 MG TAB PO SCH ×2 (08:46→20:39)
[2018-07-27] MEDS: rOPINIRole HCl 0.25 MG TAB PO SCH ×2 (08:48→20:39)
[2018-07-27] MEDS: Potassium Chloride 20 MEQ TAB PO SCH ×3 (08:48→20:41)
[2018-07-27] MEDS: Torsemide 20 MG TAB PO SCH ×3 (08:48→20:38)
[2018-07-27] MEDS: Alogliptin 25 MG TAB PO SCH (08:49)
[2018-07-27] MEDS: traMADol HCl 50 MG TAB PO SCH ×3 (08:50→20:40)
[2018-07-27] MEDS: Glimepiride 2 MG TAB PO SCH ×2 (08:50→20:39)
[2018-07-27] MEDS: LINACLOTIDE (LINZESS) 290 MCG CAPSULE PO SCH (08:53)
[2018-07-27] MEDS: LIRAGLUTIDE 18 MG/3 ML SC SCH (08:55)
[2018-07-27] MEDS: Ondansetron ODT 4 MG TAB SL PRN (16:09)
[2018-07-27] MEDS: Warfarin Sodium 5 MG TAB PO SCH (17:23)
[2018-07-27] MEDS: Pravastatin Sodium 20 MG TAB PO SCH (20:38)
[2018-07-27] MEDS: tiZANidine HCl 4 MG TAB PO SCH (20:38)
[2018-07-27] MEDS: Polyethylene Glycol 3350 17 GM Packet PO SCH (20:41)
[2018-07-28 05:10] LABS: INR-International Normal Ratio 2.2; Prothrombin Time 24.2 SEC (12.0-14.7)
[2018-07-28] MEDS: Levothyroxine Sodium 50 MCG TAB PO SCH (06:03)
[2018-07-28] MEDS: Piperacillin/Tazobactam 3.375 GM in Sodium Chloride 0.9% 100 ML IVPB SCH ×4 (06:04→18:06)
[2018-07-28] MEDS: Glimepiride 2 MG TAB PO SCH ×2 (08:46→20:55)
[2018-07-28] MEDS: Spironolactone 25 MG TAB PO SCH ×2 (08:46→14:29)
[2018-07-28] MEDS: Torsemide 20 MG TAB PO SCH ×3 (08:46→20:55)
[2018-07-28] MEDS: rOPINIRole HCl 0.25 MG TAB PO SCH ×2 (08:47→20:55)
[2018-07-28] MEDS: rOPINIRole HCl 2 MG TAB PO SCH ×2 (08:47→20:56)
[2018-07-28] MEDS: Alogliptin 25 MG TAB PO SCH (08:48)
[2018-07-28] MEDS: traMADol HCl 50 MG TAB PO SCH ×3 (08:50→20:53)
[2018-07-28] MEDS: Potassium Chloride 20 MEQ TAB PO SCH ×3 (08:50→20:53)
[2018-07-28] MEDS: LINACLOTIDE (LINZESS) 290 MCG CAPSULE PO SCH (08:51)
[2018-07-28] MEDS: LIRAGLUTIDE 18 MG/3 ML SC SCH (08:55)
[2018-07-28] MEDS: Warfarin Sodium 5 MG TAB PO SCH (18:05)
[2018-07-28] MEDS: tiZANidine HCl 4 MG TAB PO SCH (20:53)
[2018-07-28] MEDS: Polyethylene Glycol 3350 17 GM Packet PO SCH (20:53)
[2018-07-28] MEDS: Pravastatin Sodium 20 MG TAB PO SCH (20:55)
[2018-07-29] MEDS: Piperacillin/Tazobactam 3.375 GM in Sodium Chloride 0.9% 100 ML IVPB SCH ×4 (00:01→17:35)
[2018-07-29] MEDS: HYDROcodone/Acetaminophen 5/325 mg Tablet PO PRN ×2 (00:45→17:42)
[2018-07-29 05:40] LABS: INR-International Normal Ratio 2.1; Prothrombin Time 23.7 SEC (12.0-14.7)
[2018-07-29] MEDS: Levothyroxine Sodium 50 MCG TAB PO SCH (06:28)
[2018-07-29] MEDS: LINACLOTIDE (LINZESS) 290 MCG CAPSULE PO SCH (08:29)
[2018-07-29] MEDS: traMADol HCl 50 MG TAB PO SCH ×3 (08:30→21:20)
[2018-07-29] MEDS: Spironolactone 25 MG TAB PO SCH ×2 (08:31→14:29)
[2018-07-29] MEDS: Alogliptin 25 MG TAB PO SCH (08:31)
[2018-07-29] MEDS: Torsemide 20 MG TAB PO SCH ×4 (08:31→21:19)
[2018-07-29] MEDS: Glimepiride 2 MG TAB PO SCH ×2 (08:33→21:20)
[2018-07-29] MEDS: Potassium Chloride 20 MEQ TAB PO SCH ×3 (08:33→21:19)
[2018-07-29] MEDS: rOPINIRole HCl 2 MG TAB PO SCH ×2 (08:34→21:21)
[2018-07-29] MEDS: rOPINIRole HCl 0.25 MG TAB PO SCH ×2 (08:34→21:20)
[2018-07-29] MEDS: LIRAGLUTIDE 18 MG/3 ML SC SCH (08:36)
[2018-07-29] MEDS: Warfarin Sodium 5 MG TAB PO SCH (16:45)
[2018-07-29] MEDS ORDERED: Potassium Chloride 20 MEQ TAB ONE (21:09)
[2018-07-29] MEDS: Polyethylene Glycol 3350 17 GM Packet PO SCH (21:16)
[2018-07-29] MEDS: tiZANidine HCl 4 MG TAB PO SCH (21:19)
[2018-07-29] MEDS: Pravastatin Sodium 20 MG TAB PO SCH (21:20)
[2018-07-30 04:37] VITALS: BP 118/57; TEMP 97.6
[2018-07-30 05:03] LABS: INR-International Normal Ratio 2.1; Prothrombin Time 23.5 SEC (12.0-14.7)
[2018-07-30] MEDS: Levothyroxine Sodium 50 MCG TAB PO SCH (05:36)
[2018-07-30] MEDS: Piperacillin/Tazobactam 3.375 GM in Sodium Chloride 0.9% 100 ML IVPB SCH ×3 (05:39→11:25)
[2018-07-30] MEDS ORDERED: Potassium Chloride 20 MEQ TAB ONE (08:23)
[2018-07-30] MEDS: LINACLOTIDE (LINZESS) 290 MCG CAPSULE PO SCH (08:28)
[2018-07-30] MEDS: rOPINIRole HCl 2 MG TAB PO SCH (08:29)
[2018-07-30] MEDS: Alogliptin 25 MG TAB PO SCH (08:30)
[2018-07-30] MEDS: rOPINIRole HCl 0.25 MG TAB PO SCH (08:30)
[2018-07-30] MEDS: Potassium Chloride 20 MEQ TAB PO SCH (08:31)
[2018-07-30] MEDS: Spironolactone 25 MG TAB PO SCH (08:32)
[2018-07-30] MEDS: Glimepiride 2 MG TAB PO SCH (08:32)
[2018-07-30] MEDS: Torsemide 20 MG TAB PO SCH (08:32)
[2018-07-30] MEDS: traMADol HCl 50 MG TAB PO SCH (08:33)
[2018-07-30] MEDS: LIRAGLUTIDE 18 MG/3 ML SC SCH (08:35)
[2018-07-30] MEDS: Ondansetron ODT 4 MG TAB SL PRN (11:24)
== END 2018-07-30 12:57 | disposition home health service (06) | DRG 603 ==
LOC: BURMED 23:54 → UNDOADMIN 07-21 00:10
PROVIDERS: ADMIT Family Medicine; ATTEND Family Medicine
DX: L03.116 Cellulitis of left lower limb (principal); I50.20 Unspecified systolic (congestive) heart failure; Z68.41 Body mass index [BMI] 40.0-44.9, adult; L03.115 Cellulitis of right lower limb; I87.2 Venous insufficiency (chronic) (peripheral); E11.9 Type 2 diabetes mellitus without complications; I11.0 Hypertensive heart disease with heart failure; I48.2 Chronic atrial fibrillation; E78.5 Hyperlipidemia, unspecified; E03.9 Hypothyroidism, unspecified; E66.01 Morbid (severe) obesity due to excess calories; Z98.41 Cataract extraction status, right eye; Z98.42 Cataract extraction status, left eye; Z90.49 Acquired absence of other specified parts of digestive tract; Z98.51 Tubal ligation status; Z88.0 Allergy status to penicillin; Z88.1 Allergy status to other antibiotic agents; Z88.8 Allergy status to other drugs, medicaments and biological substances
CPT/HCPCS: 36415; 36416; 80048; 80053; 80202; 85025; 85610; J2543; J7050; Q0162

== ENCOUNTER 2018-10-04 14:45 | Emergency (ER) | payer MEDICARE, MEDICAID ==
[2018-10-04 15:24] LABS: #Basophils 0.1 thou/uL (0.0-0.2); #Eosinphils 0.1 thou/uL (0.0-0.7); #Lymphocytes 1.4 thou/uL (1.20-3.40); #Monocytes 0.5 thou/uL (0.11-0.59); #Neutrophils 3.4 thou/uL (1.40-6.50); %Basophils 1.2 % (0.0-1.0); %Eosinophils 2.3 % (0.0-10.0); %Monocytes 8.6 % (0.0-10.0); %Neutrophils 62.9 % (42.0-75.0); Hemoglobin 12.3 g/dL (12.0-16.0); Mean Corpuscular HGB CONC 31.3 g/dL (32.0-36.0); Mean Corpuscular Hemoglobin 27.1 pg (27.0-31.0); Mean Corpuscular Volume 86.3 fL (78.0-98.0); Mean Platelet Volume 7.7 fL (7.4-10.4); Platelet Count 167 thou/uL (130-400); RBC Distribution Width 14.9 % (11.5-14.5); Red Blood Cell (RBC) Count 4.56 mill/uL (4.20-5.40); White Blood Cell (WBC) Count 5.4 thou/uL (4.8-10.8)
[2018-10-04] MEDS ORDERED: Aspirin Chewable 81 MG TAB ONE (15:41)
[2018-10-04 15:44] LABS: ALT (SGPT) 29 U/L (8-55); AST (SGOT) 32 U/L (5-34); Albumin 3.7 g/dL (3.4-4.8); Alkaline Phosphatase 141 U/L (40-150); Anion Gap 14 mmol/L (10-20); BUN (Urea Nitrogen) 24 mg/dL (9.8-20.1); Bilirubin, Total 0.7 mg/dL (0.2-1.2); CK (CPK) 67 U/L (29-168); Calc. Creatinine Clearance 0 mL/min (70-130); Calcium 9.3 mg/dL (7.8-10.44); Carbon Dioxide 24 mmol/L (23-31); Chloride 101 mmol/L (98-107); Estimated GFR-MDRD 40; Globulin 4.5 g/dL (2.4-3.5); Glucose 224 mg/dL (83-110); Lipase 35 U/L (8-78); Potassium 3.8 mmol/L (3.5-5.1); Protein, Total 8.2 g/dL (6.0-8.3); Sodium 135 mmol/L (136-145)
[2018-10-04 15:58] LABS: INR-International Normal Ratio 2.4; PTT 43.1 SEC (22.9-36.1); Prothrombin Time 25.8 SEC (12.0-14.7)
[2018-10-04] MEDS ORDERED: Furosemide 100 MG/10 ML VIAL ONE (16:01)
--- NOTE | 2018-10-04 18:26 | RAD ---
PORTABLE CHEST: 10/04/18 The patient is turned slightly which accentuates the right heart border. The heart is enlarged. There is no clear vascular congestion or large effusion at this time. The lungs seem clear. IMPRESSION: Cardiomegaly. POS: HOME
== END 2018-10-04 17:10 | disposition short-term general hospital (02) ==
LOC: BURERS 14:45
DX: I11.0 Hypertensive heart disease with heart failure (principal); I50.9 Heart failure, unspecified; E03.9 Hypothyroidism, unspecified; E11.9 Type 2 diabetes mellitus without complications; I48.91 Unspecified atrial fibrillation; Z79.01 Long term (current) use of anticoagulants; Z79.899 Other long term (current) drug therapy
CPT/HCPCS: 71045; 80053; 82550; 83690; 83880; 84484; 85025; 85610; 85730; 93005; 94760; 96374; J1940

== ENCOUNTER 2018-11-02 20:19 | Emergency (ER) | payer MEDICARE, MEDICAID ==
[2018-11-02 21:06] LABS: #Basophils 0.1 thou/uL (0.0-0.2); #Eosinphils 0.1 thou/uL (0.0-0.7); #Lymphocytes 1.4 thou/uL (1.20-3.40); #Monocytes 0.7 thou/uL (0.11-0.59); #Neutrophils 4.8 thou/uL (1.40-6.50); %Basophils 0.7 % (0.0-1.0); %Eosinophils 1.2 % (0.0-10.0); %Lymphocytes 19.6 % (21.0-51.0); %Monocytes 10.4 % (0.0-10.0); %Neutrophils 68.1 % (42.0-75.0); Hemoglobin 12.9 g/dL (12.0-16.0); Mean Corpuscular HGB CONC 31.5 g/dL (32.0-36.0); Mean Corpuscular Hemoglobin 26.4 pg (27.0-31.0); Mean Platelet Volume 7.7 fL (7.4-10.4); Platelet Count 174 thou/uL (130-400); RBC Distribution Width 14.4 % (11.5-14.5); Red Blood Cell (RBC) Count 4.87 mill/uL (4.20-5.40); White Blood Cell (WBC) Count 7.1 thou/uL (4.8-10.8)
--- NOTE | 2018-11-02 21:08 | RAD ---
EXAM: Single view of the chest HISTORY: Dizziness for a week COMPARISON: 10/04/2018 FINDINGS: Single view of the chest shows an enlarged but stable cardiomediastinal silhouette. There i s no evidence of consolidation, mass, or pleural effusion. The bones are unremarkable. IMPRESSION: Cardiomegaly without evidence of acute cardiopulmonary disease
[2018-11-02 21:18] LABS: ALT (SGPT) 26 U/L (8-55); AST (SGOT) 34 U/L (5-34); Albumin 3.7 g/dL (3.4-4.8); Alkaline Phosphatase 113 U/L (40-150); Anion Gap 19 mmol/L (10-20); BUN (Urea Nitrogen) 97 mg/dL (9.8-20.1); Bilirubin, Total 0.7 mg/dL (0.2-1.2); Calc. Creatinine Clearance 0 mL/min (70-130); Carbon Dioxide 27 mmol/L (23-31); Chloride 91 mmol/L (98-107); Estimated GFR-MDRD 26; Globulin 4.6 g/dL (2.4-3.5); Glucose 310 mg/dL (83-110); Protein, Total 8.3 g/dL (6.0-8.3); Sodium 134 mmol/L (136-145)
[2018-11-02 21:20] LABS: Potassium 2.7 mmol/L (3.5-5.1)
[2018-11-02] MEDS ORDERED: Potassium Chloride 20 MEQ TAB ONE ×2 (21:29→21:34)
[2018-11-02] MEDS ORDERED: Ondansetron ODT 4 MG TAB ONE (21:29)
[2018-11-02 23:06] LABS: Potassium 2.6 mmol/L (3.5-5.1)
== END 2018-11-02 23:50 | disposition home or self-care (01) ==
LOC: BURERS 20:19
DX: E87.6 Hypokalemia (principal); R42 Dizziness and giddiness; E03.9 Hypothyroidism, unspecified; I48.91 Unspecified atrial fibrillation; I11.0 Hypertensive heart disease with heart failure; I50.9 Heart failure, unspecified; Z79.84 Long term (current) use of oral hypoglycemic drugs; Z79.899 Other long term (current) drug therapy; Z79.01 Long term (current) use of anticoagulants
CPT/HCPCS: 36415; 71045; 80053; 83880; 84484; 85025; 93005; Q0162

== ENCOUNTER 2019-02-01 17:03 | Inpatient (IN) | payer MEDICARE, MEDICAID ==
[2019-02-01 17:45] LABS: #Basophils 0.1 thou/uL (0.0-0.2); #Eosinphils 0.1 thou/uL (0.0-0.7); #Lymphocytes 1.6 thou/uL (1.20-3.40); #Monocytes 0.7 thou/uL (0.11-0.59); #Neutrophils 3.8 thou/uL (1.40-6.50); %Basophils 1.2 % (0.0-1.0); %Eosinophils 2.2 % (0.0-10.0); %Lymphocytes 25.8 % (21.0-51.0); %Monocytes 10.2 % (0.0-10.0); %Neutrophils 60.5 % (42.0-75.0); Hemoglobin 12.5 g/dL (12.0-16.0); Mean Corpuscular HGB CONC 31.5 g/dL (32.0-36.0); Mean Corpuscular Hemoglobin 27.2 pg (27.0-31.0); Mean Corpuscular Volume 86.5 fL (78.0-98.0); Mean Platelet Volume 8.4 fL (7.4-10.4); Platelet Count 181 thou/uL (130-400); RBC Distribution Width 15.1 % (11.5-14.5); Red Blood Cell (RBC) Count 4.59 mill/uL (4.20-5.40); White Blood Cell (WBC) Count 6.3 thou/uL (4.8-10.8)
[2019-02-01 18:03] LABS: ALT (SGPT) 28 U/L (8-55); AST (SGOT) 40 U/L (5-34); Albumin 3.8 g/dL (3.4-4.8); Alkaline Phosphatase 102 U/L (40-150); Anion Gap 14 mmol/L (10-20); BUN (Urea Nitrogen) 43 mg/dL (9.8-20.1); Bilirubin, Total 0.6 mg/dL (0.2-1.2); Calc. Creatinine Clearance 0 mL/min (70-130); Carbon Dioxide 29 mmol/L (23-31); Chloride 97 mmol/L (98-107); Estimated GFR-MDRD 36; Globulin 4.7 g/dL (2.4-3.5); Glucose 173 mg/dL (83-110); Potassium 3.9 mmol/L (3.5-5.1); Protein, Total 8.5 g/dL (6.0-8.3); Sodium 136 mmol/L (136-145)
[2019-02-01 18:04] LABS: INR-International Normal Ratio 2.8
[2019-02-01 18:05] LABS: PTT 40.2 SEC (22.9-36.1)
[2019-02-01 19:54] VITALS: BMI 44.9
[2019-02-01] MEDS ORDERED: Ondansetron ODT 4 MG TAB SL PRN ×2 (20:52)
[2019-02-01] MEDS ORDERED: Ondansetron PF 4 MG/2 ML Vial IVP PRN (20:52)
[2019-02-01] MEDS: Polyethylene Glycol 3350 17 GM Packet PO SCH (23:01)
[2019-02-01] MEDS: rOPINIRole HCl 2 MG TAB PO SCH (23:01)
[2019-02-01] MEDS: tiZANidine HCl 4 MG TAB PO SCH (23:02)
[2019-02-01] MEDS: Gabapentin 100 MG CAP PO SCH (23:02)
[2019-02-01] MEDS: Pravastatin Sodium 20 MG TAB PO SCH (23:03)
[2019-02-01] MEDS: Torsemide 20 MG TAB PO SCH (23:03)
[2019-02-01] MEDS: Potassium Chloride 20 MEQ TAB PO SCH (23:04)
[2019-02-02] MEDS: Levothyroxine Sodium 50 MCG TAB PO SCH (05:44)
[2019-02-02] MEDS: traMADol HCl 50 MG TAB PO PRN ×2 (05:45→16:47)
[2019-02-02 05:59] LABS: INR-International Normal Ratio 2.7; Prothrombin Time 28.7 SEC (12.0-14.7)
[2019-02-02] MEDS ORDERED: Alogliptin 6.25 MG TAB PO SCH (09:00)
[2019-02-02] MEDS: Famotidine 20 MG TAB PO SCH ×2 (09:14→21:21)
[2019-02-02] MEDS: Saccharomyces boulardii 250 MG CAP PO SCH (09:14)
[2019-02-02] MEDS: Spironolactone 25 MG TAB PO SCH (09:15)
[2019-02-02] MEDS: Glimepiride 2 MG TAB PO SCH ×2 (09:16→21:20)
[2019-02-02] MEDS: Docusate 100 MG CAP PO SCH (09:16)
[2019-02-02] MEDS: Fish Oil 1,000 MG CAP PO SCH ×2 (09:16→09:19)
[2019-02-02] MEDS: rOPINIRole HCl 2 MG TAB PO SCH ×2 (09:17→21:19)
[2019-02-02] MEDS: Torsemide 20 MG TAB PO SCH ×3 (09:17→21:19)
[2019-02-02] MEDS: metFORMIN 500 MG TAB PO SCH ×2 (09:18→16:47)
[2019-02-02] MEDS: Potassium Chloride 20 MEQ TAB PO SCH ×3 (09:18→21:20)
[2019-02-02] MEDS: Gabapentin 100 MG CAP PO SCH ×2 (09:18→21:20)
[2019-02-02] MEDS: Liraglutide [Victoza 3-Pak] 0.6 MG SC SCH (09:22)
[2019-02-02] MEDS ORDERED: Dextrose 5% in Water 1,000 ML IV PRN (13:20)
[2019-02-02] MEDS ORDERED: Dextrose 50% Abboject 50 ML SYRINGE IVP PRN (13:20)
[2019-02-02] MEDS: HumaLOG 300 UNITS/3 ML VIAL SC PRN (14:01)
--- NOTE | 2019-02-02 15:24 | HP ---
CHIEF COMPLAINT: Bilateral lower extremity cellulitis. HISTORY OF PRESENT ILLNESS: A 73-year-old female, presented to the [facility] Emergency Department yesterday evening with complaints of lack of improvement in regard to bilateral lower extremity cellulitis. She had been treated as an outpatient with a course of Levaquin, followed by a course of doxycycline with unsatisfactory improvement. She denies being febrile at home, but does report to have had intermittent chills. She states she has had discomfort to the lower extremities in conjunction with erythema; it should be noted that the patient does have chronic mild appearing erythema to the lower extremities partially related to her chronic cardiac conditions and lymphedema. The patient was started on IV vancomycin in the emergency department. Her lab work is largely stable with no leukocytosis or elevation of her lactic acid level. Secondary to failed outpatient antibiotic therapy, she will be admitted for IV antibiotics to treat her bilateral lower extremity cellulitis. PAST MEDICAL HISTORY: Includes hypertension, chronic atrial fibrillation, diastolic congestive heart failure, type 2 diabetes mellitus, hypothyroidism, dyslipidemia , lymphedema, and chronic kidney disease stage 3 to 4. PAST SURGICAL HISTORY: Includes tubal ligation and cholecystectomy. FAMILY HISTORY: Noncontributory. SOCIAL HISTORY: Nonsmoker with no EtOH or illicit drug use. ALLERGIES: INCLUDE CLINDAMYCIN, BENADRYL, METHYLPHENIDATE, PENICILLIN, SULFA. CURRENT MEDICATIONS: 1. Victoza 0.6 mg subcutaneously daily. 2. Metolazone 2.5 mg on Monday, Monday, and Monday. 3. Januvia 50 mg daily. 4. Ropinirole 4 mg b.i.d. 5. Pravastatin 10 mg at bedtime. 6. Spironolactone 37.5 mg daily. 7. Glimepiride 1 mg p.o. b.i.d. 8. Coumadin 7.5 mg on Monday, , Monday, Monday; 5 mg on Monday, Monday, and Monday. 9. Tizanidine 4 mg at bedtime. 10. Metoprolol succinate 25 mg b.i.d. 11. Fish oil 1200 mg daily. 12. Torsemide 40 mg t.i.d. 13. Gabapentin 100 mg b.i.d. 14. Metformin 500 mg b.i.d. 15. Potassium chloride 20 mEq t.i.d. 16. Linzess 290 mcg daily. 17. Levothyroxine 25 mcg daily. 18. MiraLAX 17 g at bedtime. 19. Zofran 4 mg sublingual q.6 hours p.r.n. 20. Colace 100 mg daily. 21. Tramadol 50 mg t.i.d. LABORATORY DATA: White blood cell count of 6.3, hemoglobin 12.5, hematocrit 39.7, platelets 181. INR is 2.8 yesterday and 2.7 this morning. Sodium 136, potassium 3.9, BUN is 43, creatinine 1.42 with GFR 36, glucose 173. Lactic acid is 1.6. AST is 40, ALT is 28. BNP is 166.5. PHYSICAL EXAMINATION: VITAL SIGNS: Temperature is 97.7, pulse is 72, respiratory rate 18, oxygen 99% on room air, blood pressure is 124/57. GENERAL: The patient is alert and oriented, in no acute distress. She is obese. HEENT: Eyes, conjunctivae are clear. Sclerae are clear. Extraocular muscles are intact bilaterally. Head, eyes, ears, nose, and throat are within normal limits. NECK: Supple with no lymphadenopathy. No meningeal signs. CARDIOVASCULAR: Irregular with normal S1 and S2. No murmurs. RESPIRATORY: Clear to auscultation bilaterally. No wheezes, rales, or rhonchi. GASTROINTESTINAL: Soft. Nontender to palpation. No masses. EXTREMITIES: No clubbing or cyanosis. She has 1+ edema to the bilateral lower extremities. PIV to the left upper extremity. SKIN: Erythema to bilateral lower extremities with mild superficial warmth and dry flaky skin. NEUROLOGIC: Nonfocal with cranial nerves 2 through 12 grossly intact. Peripheral pulses were 2+ and symmetric to all 4 extremities. ASSESSMENT AND PLAN: 1. Cellulitis, bilateral lower extremities, failed outpatient p.o. antibiotics with Levaquin and doxycycline. We will resume the patient on IV vancomycin with pharmacy to titrate this dose per protocol. We will repeat the patient's CBC tomorrow morning and trend her vital signs. We will provide Florastor with the patient being on antibiotic therapy. We will also follow up her blood cultures. 2. Chronic atrial fibrillation. The patient is rate controlled and she is on Coumadin and notably therapeutic on her dosing. 3. Type 2 diabetes mellitus. We will resume the patient on her usual diabetic medications with before meals and at bedtime glucose checks. 4. Chronic diastolic congestive heart failure. The patient is near euvolemic with stable BNP. We will resume her diuretic medications. 5. Hypertension. The patient is hemodynamically stable with blood pressure at goal. We will resume her usual blood pressure medications. 6. Dyslipidemia. Continue statin therapy. 7. Lymphedema. I have encouraged the patient to elevate her legs as able during the day. 8. Chronic kidney disease, stage 3 to 4, this is currently stable at baseline. 9. Hypothyroidism. Levothyroxine will be resumed. 10. Prophylaxis. Famotidine added for GI prophylaxis. 11. Code status is full. Job ID: [id number] MTDD
[2019-02-02] MEDS: Warfarin Sodium 7.5 MG TAB PO SCH (16:53)
[2019-02-02] MEDS: Vancomycin HCl 1.5 GM in Sodium Chloride 0.9% 250 ML 300 ML IVPB SCH (16:54)
[2019-02-02] MEDS: Polyethylene Glycol 3350 17 GM Packet PO SCH (21:18)
[2019-02-02] MEDS: tiZANidine HCl 4 MG TAB PO SCH (21:21)
[2019-02-02] MEDS: Pravastatin Sodium 20 MG TAB PO SCH (21:22)
[2019-02-03] MEDS: Levothyroxine Sodium 50 MCG TAB PO SCH (05:11)
[2019-02-03 05:46] LABS: INR-International Normal Ratio 2.2; Prothrombin Time 24.1 SEC (12.0-14.7)
[2019-02-03 05:47] LABS: #Basophils 0.1 thou/uL (0.0-0.2); #Eosinphils 0.2 thou/uL (0.0-0.7); #Lymphocytes 1.2 thou/uL (1.20-3.40); #Monocytes 0.6 thou/uL (0.11-0.59); #Neutrophils 2.8 thou/uL (1.40-6.50); %Basophils 1.2 % (0.0-1.0); %Eosinophils 3.7 % (0.0-10.0); %Lymphocytes 24.4 % (21.0-51.0); %Monocytes 12.5 % (0.0-10.0); %Neutrophils 58.2 % (42.0-75.0); Hemoglobin 11.3 g/dL (12.0-16.0); Mean Corpuscular HGB CONC 31.5 g/dL (32.0-36.0); Mean Corpuscular Hemoglobin 27.2 pg (27.0-31.0); Mean Corpuscular Volume 86.5 fL (78.0-98.0); Mean Platelet Volume 7.8 fL (7.4-10.4); Platelet Count 140 thou/uL (130-400); RBC Distribution Width 15.2 % (11.5-14.5); Red Blood Cell (RBC) Count 4.17 mill/uL (4.20-5.40); White Blood Cell (WBC) Count 4.8 thou/uL (4.8-10.8)
[2019-02-03 05:55] LABS: ALT (SGPT) 22 U/L (8-55); AST (SGOT) 28 U/L (5-34); Albumin 3.2 g/dL (3.4-4.8); Alkaline Phosphatase 99 U/L (40-150); Anion Gap 14 mmol/L (10-20); BUN (Urea Nitrogen) 39 mg/dL (9.8-20.1); Bilirubin, Total 0.6 mg/dL (0.2-1.2); Calc. Creatinine Clearance 89 mL/min (70-130); Calcium 9.2 mg/dL (7.8-10.44); Carbon Dioxide 26 mmol/L (23-31); Chloride 100 mmol/L (98-107); Estimated GFR-MDRD 41; Globulin 3.9 g/dL (2.4-3.5); Glucose 164 mg/dL (83-110); Potassium 3.8 mmol/L (3.5-5.1); Protein, Total 7.1 g/dL (6.0-8.3); Sodium 136 mmol/L (136-145)
[2019-02-03] MEDS: Docusate 100 MG CAP PO SCH (09:16)
[2019-02-03] MEDS: Spironolactone 25 MG TAB PO SCH (09:17)
[2019-02-03] MEDS: metFORMIN 500 MG TAB PO SCH ×2 (09:18→17:01)
[2019-02-03] MEDS: Saccharomyces boulardii 250 MG CAP PO SCH (09:18)
[2019-02-03] MEDS: Potassium Chloride 20 MEQ TAB PO SCH ×3 (09:18→20:38)
[2019-02-03] MEDS: Famotidine 20 MG TAB PO SCH ×2 (09:19→20:39)
[2019-02-03] MEDS: Torsemide 20 MG TAB PO SCH ×2 (09:19→20:38)
[2019-02-03] MEDS: rOPINIRole HCl 2 MG TAB PO SCH ×2 (09:19→20:37)
[2019-02-03] MEDS: Fish Oil 1,000 MG CAP PO SCH (09:19)
[2019-02-03] MEDS: Glimepiride 2 MG TAB PO SCH ×2 (09:20→20:38)
[2019-02-03] MEDS: Gabapentin 100 MG CAP PO SCH ×2 (09:22→20:40)
[2019-02-03] MEDS: [UNRECOGNIZED DRUG - REMARK] PO SCH (09:23)
[2019-02-03] MEDS: Acetaminophen 325 MG TAB PO PRN ×2 (09:34→20:49)
[2019-02-03] MEDS: Liraglutide [Victoza 3-Pak] 0.6 MG SC SCH (09:37)
[2019-02-03] MEDS ORDERED: hydrOXYzine 25 MG TAB PO PRN (12:52)
[2019-02-03] MEDS: Vancomycin HCl 1.5 GM in Sodium Chloride 0.9% 250 ML 300 ML IVPB SCH (16:50)
[2019-02-03] MEDS: Warfarin Sodium 7.5 MG TAB PO SCH (17:00)
[2019-02-03] MEDS: HumaLOG 300 UNITS/3 ML VIAL SC PRN (17:38)
[2019-02-03] MEDS: traMADol HCl 50 MG TAB PO PRN (18:40)
[2019-02-03] MEDS: Pravastatin Sodium 20 MG TAB PO SCH (20:38)
[2019-02-03] MEDS: tiZANidine HCl 4 MG TAB PO SCH (20:39)
[2019-02-03] MEDS: Polyethylene Glycol 3350 17 GM Packet PO SCH (20:39)
[2019-02-04] MEDS: Levothyroxine Sodium 50 MCG TAB PO SCH (05:39)
[2019-02-04] MEDS: traMADol HCl 50 MG TAB PO PRN (05:39)
[2019-02-04 06:06] LABS: INR-International Normal Ratio 2.3; Prothrombin Time 24.9 SEC (12.0-14.7)
[2019-02-04 06:58] VITALS: BP 100/52; TEMP 97.5
[2019-02-04] MEDS ORDERED: Metolazone 5 MG TAB PO SCH (09:00)
[2019-02-04] MEDS: rOPINIRole HCl 2 MG TAB PO SCH (09:40)
[2019-02-04] MEDS: Saccharomyces boulardii 250 MG CAP PO SCH (09:40)
[2019-02-04] MEDS: Docusate 100 MG CAP PO SCH (09:40)
[2019-02-04] MEDS: Glimepiride 2 MG TAB PO SCH (09:41)
[2019-02-04] MEDS: Famotidine 20 MG TAB PO SCH (09:41)
[2019-02-04] MEDS: metFORMIN 500 MG TAB PO SCH (09:42)
[2019-02-04] MEDS: Spironolactone 25 MG TAB PO SCH (09:43)
[2019-02-04] MEDS: Torsemide 20 MG TAB PO SCH (09:43)
[2019-02-04] MEDS: Gabapentin 100 MG CAP PO SCH (09:43)
[2019-02-04] MEDS: Potassium Chloride 20 MEQ TAB PO SCH (09:44)
[2019-02-04] MEDS: [UNRECOGNIZED DRUG - REMARK] PO SCH (09:47)
[2019-02-04] MEDS: Liraglutide [Victoza 3-Pak] 0.6 MG SC SCH (09:55)
[2019-02-04] MEDS ORDERED: Warfarin Sodium 5 MG TAB PO SCH (17:00)
== END 2019-02-04 11:27 | disposition swing bed (61) | DRG 603 ==
LOC: BURERS 17:03 → BURMED 18:20
PROVIDERS: ADMIT Family Medicine; ATTEND Family Medicine
DX: L03.115 Cellulitis of right lower limb (principal); I13.0 Hypertensive heart and chronic kidney disease with heart failure and stage 1 through stage 4 chronic kidney disease, or unspecified chronic kidney disease; I50.32 Chronic diastolic (congestive) heart failure; Z68.42 Body mass index [BMI] 45.0-49.9, adult; L03.116 Cellulitis of left lower limb; E11.22 Type 2 diabetes mellitus with diabetic chronic kidney disease; E03.9 Hypothyroidism, unspecified; I48.2 Chronic atrial fibrillation; N18.3 Chronic kidney disease, stage 3 (moderate); I89.0 Lymphedema, not elsewhere classified; E78.5 Hyperlipidemia, unspecified; Z90.49 Acquired absence of other specified parts of digestive tract; Z98.51 Tubal ligation status; Z88.0 Allergy status to penicillin; Z88.8 Allergy status to other drugs, medicaments and biological substances; Z88.2 Allergy status to sulfonamides; Z79.84 Long term (current) use of oral hypoglycemic drugs; Z79.899 Other long term (current) drug therapy; E66.9 Obesity, unspecified
CPT/HCPCS: 36415; 36416; 80053; 83605; 83880; 85025; 85610; 85730; 87040; 96365; C1713; J3370; J7050

== ENCOUNTER 2019-02-04 10:07 | Inpatient (IN) | payer MEDICARE, MEDICAID ==
[2019-02-04] MEDS ORDERED: Dextrose 5% in Water 1,000 ML IV PRN (13:40)
[2019-02-04] MEDS ORDERED: Dextrose 50% Abboject 50 ML SYRINGE IVP PRN (13:40)
[2019-02-04] MEDS ORDERED: hydrOXYzine 25 MG TAB PO PRN (13:41)
[2019-02-04] MEDS ORDERED: Ondansetron PF 4 MG/2 ML Vial SLOW IVP PRN (13:41)
[2019-02-04] MEDS ORDERED: Ondansetron ODT 4 MG TAB PO PRN (13:41)
[2019-02-04] MEDS: Torsemide 20 MG TAB PO SCH (16:10)
[2019-02-04] MEDS: Potassium Chloride 20 MEQ TAB PO SCH ×2 (16:10→20:56)
[2019-02-04] MEDS: Glimepiride 2 MG TAB PO SCH (16:11)
[2019-02-04] MEDS: metFORMIN 500 MG TAB PO SCH (16:54)
[2019-02-04] MEDS: Warfarin Sodium 5 MG TAB PO SCH (16:54)
[2019-02-04] MEDS ORDERED: Vancomycin HCl 750 MG in Sodium Chloride 0.9% 250 ML 250 ML IVPB SCH ×2 (17:00→18:00)
[2019-02-04 17:05] LABS: Vancomycin, Trough 41.7 ug/mL
[2019-02-04] MEDS: rOPINIRole HCl 2 MG TAB PO SCH (20:55)
[2019-02-04] MEDS: Famotidine 20 MG TAB PO SCH (20:56)
[2019-02-04] MEDS: Pravastatin Sodium 20 MG TAB PO SCH (20:56)
[2019-02-04] MEDS: Gabapentin 100 MG CAP PO SCH (20:57)
[2019-02-04] MEDS: Polyethylene Glycol 3350 17 GM Packet PO SCH (20:57)
[2019-02-04] MEDS: tiZANidine HCl 4 MG TAB PO SCH (20:57)
[2019-02-04] MEDS: traMADol HCl 50 MG TAB PO PRN (21:05)
[2019-02-05] MEDS: traMADol HCl 50 MG TAB PO PRN ×3 (06:08→20:50)
[2019-02-05] MEDS: Levothyroxine Sodium 25 MCG TAB PO SCH (06:08)
[2019-02-05 06:12] LABS: INR-International Normal Ratio 2.5; Prothrombin Time 26.5 SEC (12.0-14.7)
[2019-02-05 06:34] LABS: Hemoglobin 11.5 g/dL (12.0-16.0); Platelet Count 146 thou/uL (130-400)
[2019-02-05] MEDS: rOPINIRole HCl 2 MG TAB PO SCH ×2 (09:21→20:53)
[2019-02-05] MEDS: Torsemide 20 MG TAB PO SCH ×2 (09:21→13:50)
[2019-02-05] MEDS: Potassium Chloride 20 MEQ TAB PO SCH ×3 (09:22→20:54)
[2019-02-05] MEDS: Fish Oil 1,000 MG CAP PO SCH (09:22)
[2019-02-05] MEDS: Saccharomyces boulardii 250 MG CAP PO SCH (09:22)
[2019-02-05] MEDS: Docusate 100 MG CAP PO SCH (09:24)
[2019-02-05] MEDS: Spironolactone 25 MG TAB PO SCH (09:24)
[2019-02-05] MEDS: metFORMIN 500 MG TAB PO SCH ×2 (09:25→16:18)
[2019-02-05] MEDS: Gabapentin 100 MG CAP PO SCH ×2 (09:25→20:50)
[2019-02-05] MEDS: Famotidine 20 MG TAB PO SCH ×2 (09:27→20:55)
[2019-02-05] MEDS: Glimepiride 2 MG TAB PO SCH ×2 (09:31→16:17)
[2019-02-05] MEDS: LIRAGLUTIDE 0.6 MG SC SCH (09:35)
[2019-02-05] MEDS: LINACLOTIDE 290 MCG PO SCH (09:37)
[2019-02-05] MEDS: SITAGLIPTIN 50 MG PO SCH (09:38)
[2019-02-05 16:17] LABS: Vancomycin, Random 37.2 ug/mL (See Comment)
[2019-02-05] MEDS: Warfarin Sodium 7.5 MG TAB PO SCH (16:19)
[2019-02-05] MEDS: Polyethylene Glycol 3350 17 GM Packet PO SCH (20:47)
[2019-02-05] MEDS: Pravastatin Sodium 20 MG TAB PO SCH (20:53)
[2019-02-05] MEDS: tiZANidine HCl 4 MG TAB PO SCH (20:55)
[2019-02-06 05:48] LABS: INR-International Normal Ratio 2.5; Prothrombin Time 26.9 SEC (12.0-14.7)
[2019-02-06] MEDS: Levothyroxine Sodium 25 MCG TAB PO SCH (06:08)
[2019-02-06] MEDS: Acetaminophen 325 MG TAB PO PRN (06:08)
[2019-02-06] MEDS: Fish Oil 1,000 MG CAP PO SCH (08:11)
[2019-02-06] MEDS: rOPINIRole HCl 2 MG TAB PO SCH ×2 (08:12→20:27)
[2019-02-06] MEDS: Glimepiride 2 MG TAB PO SCH ×2 (08:12→16:53)
[2019-02-06] MEDS: Potassium Chloride 20 MEQ TAB PO SCH ×3 (08:13→20:28)
[2019-02-06] MEDS: Spironolactone 25 MG TAB PO SCH (08:13)
[2019-02-06] MEDS: Docusate 100 MG CAP PO SCH (08:14)
[2019-02-06] MEDS: Saccharomyces boulardii 250 MG CAP PO SCH (08:14)
[2019-02-06] MEDS: Torsemide 20 MG TAB PO SCH ×2 (08:14→14:03)
[2019-02-06] MEDS: Gabapentin 100 MG CAP PO SCH ×2 (08:14→20:28)
[2019-02-06] MEDS: metFORMIN 500 MG TAB PO SCH ×2 (08:14→16:53)
[2019-02-06] MEDS: Metolazone 5 MG TAB PO SCH (08:15)
[2019-02-06] MEDS: Famotidine 20 MG TAB PO SCH ×2 (08:16→20:29)
[2019-02-06] MEDS: LINACLOTIDE 290 MCG PO SCH (08:20)
[2019-02-06] MEDS: SITAGLIPTIN 50 MG PO SCH (08:21)
[2019-02-06] MEDS: LIRAGLUTIDE 0.6 MG SC SCH (08:24)
[2019-02-06 11:05] VITALS: BMI 44.8
[2019-02-06] MEDS: traMADol HCl 50 MG TAB PO PRN ×2 (12:05→20:29)
[2019-02-06] MEDS: HumaLOG 300 UNITS/3 ML VIAL SC PRN (12:58)
[2019-02-06 16:21] LABS: Vancomycin, Random 31.3 ug/mL (See Comment)
[2019-02-06] MEDS: Warfarin Sodium 5 MG TAB PO SCH (16:52)
[2019-02-06] MEDS: Polyethylene Glycol 3350 17 GM Packet PO SCH (20:27)
[2019-02-06] MEDS: Pravastatin Sodium 20 MG TAB PO SCH (20:28)
[2019-02-06] MEDS: tiZANidine HCl 4 MG TAB PO SCH (20:29)
[2019-02-07] MEDS: Levothyroxine Sodium 25 MCG TAB PO SCH (05:04)
[2019-02-07] MEDS: traMADol HCl 50 MG TAB PO PRN ×2 (05:08→21:10)
[2019-02-07 05:46] LABS: INR-International Normal Ratio 2.5; Prothrombin Time 26.5 SEC (12.0-14.7)
[2019-02-07] MEDS: rOPINIRole HCl 2 MG TAB PO SCH ×2 (08:36→21:09)
[2019-02-07] MEDS: Spironolactone 25 MG TAB PO SCH (08:36)
[2019-02-07] MEDS: Docusate 100 MG CAP PO SCH (08:36)
[2019-02-07] MEDS: Glimepiride 2 MG TAB PO SCH ×2 (08:37→17:22)
[2019-02-07] MEDS: Fish Oil 1,000 MG CAP PO SCH (08:37)
[2019-02-07] MEDS: Potassium Chloride 20 MEQ TAB PO SCH ×3 (08:37→21:08)
[2019-02-07] MEDS: Gabapentin 100 MG CAP PO SCH ×2 (08:39→21:08)
[2019-02-07] MEDS: Saccharomyces boulardii 250 MG CAP PO SCH (08:39)
[2019-02-07] MEDS: metFORMIN 500 MG TAB PO SCH ×2 (08:39→17:22)
[2019-02-07] MEDS: Torsemide 20 MG TAB PO SCH ×2 (08:39→14:43)
[2019-02-07] MEDS: Famotidine 20 MG TAB PO SCH ×2 (08:39→21:09)
[2019-02-07] MEDS: LIRAGLUTIDE 0.6 MG SC SCH (08:41)
[2019-02-07] MEDS: SITAGLIPTIN 50 MG PO SCH (08:41)
[2019-02-07] MEDS: LINACLOTIDE 290 MCG PO SCH (08:42)
[2019-02-07] MEDS: Acetaminophen 325 MG TAB PO PRN (14:48)
[2019-02-07] MEDS: Warfarin Sodium 7.5 MG TAB PO SCH (17:23)
[2019-02-07 18:18] LABS: Vancomycin, Random 27.9 ug/mL (See Comment)
[2019-02-07] MEDS: Pravastatin Sodium 20 MG TAB PO SCH (21:08)
[2019-02-07] MEDS: tiZANidine HCl 4 MG TAB PO SCH (21:09)
[2019-02-07] MEDS: Nystatin Powder 15 GM BOT TOP PRN (21:10)
[2019-02-07] MEDS: Polyethylene Glycol 3350 17 GM Packet PO SCH (21:10)
[2019-02-08 04:43] LABS: #Basophils 0.1 thou/uL (0.0-0.2); #Eosinphils 0.1 thou/uL (0.0-0.7); #Lymphocytes 1.6 thou/uL (1.20-3.40); #Monocytes 0.6 thou/uL (0.11-0.59); #Neutrophils 2.9 thou/uL (1.40-6.50); %Basophils 1.8 % (0.0-1.0); %Eosinophils 2.4 % (0.0-10.0); %Lymphocytes 29.5 % (21.0-51.0); %Monocytes 11.6 % (0.0-10.0); %Neutrophils 54.7 % (42.0-75.0); Hemoglobin 12.4 g/dL (12.0-16.0); Mean Corpuscular HGB CONC 32.8 g/dL (32.0-36.0); Mean Corpuscular Hemoglobin 27.9 pg (27.0-31.0); Mean Corpuscular Volume 85.2 fL (78.0-98.0); Mean Platelet Volume 7.4 fL (7.4-10.4); Platelet Count 154 thou/uL (130-400); RBC Distribution Width 14.8 % (11.5-14.5); Red Blood Cell (RBC) Count 4.45 mill/uL (4.20-5.40); White Blood Cell (WBC) Count 5.4 thou/uL (4.8-10.8)
[2019-02-08 04:45] LABS: INR-International Normal Ratio 2.6; Prothrombin Time 27.8 SEC (12.0-14.7)
[2019-02-08 04:55] LABS: ALT (SGPT) 20 U/L (8-55); AST (SGOT) 30 U/L (5-34); Albumin 3.6 g/dL (3.4-4.8); Alkaline Phosphatase 104 U/L (40-150); Anion Gap 16 mmol/L (10-20); BUN (Urea Nitrogen) 50 mg/dL (9.8-20.1); Bilirubin, Total 0.8 mg/dL (0.2-1.2); Calc. Creatinine Clearance 73 mL/min (70-130); Calcium 9.3 mg/dL (7.8-10.44); Carbon Dioxide 26 mmol/L (23-31); Chloride 96 mmol/L (98-107); Estimated GFR-MDRD 33; Globulin 4.5 g/dL (2.4-3.5); Glucose 125 mg/dL (83-110); Potassium 3.9 mmol/L (3.5-5.1); Protein, Total 8.1 g/dL (6.0-8.3); Sodium 134 mmol/L (136-145)
[2019-02-08] MEDS: Levothyroxine Sodium 25 MCG TAB PO SCH (05:44)
[2019-02-08] MEDS: traMADol HCl 50 MG TAB PO PRN ×2 (10:12→20:46)
[2019-02-08] MEDS: LIRAGLUTIDE 0.6 MG SC SCH (10:13)
[2019-02-08] MEDS: LINACLOTIDE 290 MCG PO SCH (10:15)
[2019-02-08] MEDS: SITAGLIPTIN 50 MG PO SCH (10:15)
[2019-02-08] MEDS: Spironolactone 25 MG TAB PO SCH (10:17)
[2019-02-08] MEDS: Gabapentin 100 MG CAP PO SCH ×2 (10:17→20:39)
[2019-02-08] MEDS: Metolazone 5 MG TAB PO SCH (10:18)
[2019-02-08] MEDS: Docusate 100 MG CAP PO SCH (10:18)
[2019-02-08] MEDS: Torsemide 20 MG TAB PO SCH ×2 (10:20→14:31)
[2019-02-08] MEDS: metFORMIN 500 MG TAB PO SCH ×2 (10:20→16:47)
[2019-02-08] MEDS: Fish Oil 1,000 MG CAP PO SCH (10:20)
[2019-02-08] MEDS: Potassium Chloride 20 MEQ TAB PO SCH ×3 (10:20→20:39)
[2019-02-08] MEDS: Glimepiride 2 MG TAB PO SCH ×2 (10:21→16:47)
[2019-02-08] MEDS: Famotidine 20 MG TAB PO SCH ×2 (10:21→20:39)
[2019-02-08] MEDS: rOPINIRole HCl 2 MG TAB PO SCH ×2 (10:22→20:39)
[2019-02-08] MEDS: Saccharomyces boulardii 250 MG CAP PO SCH (10:22)
[2019-02-08 16:27] LABS: Vancomycin, Random 24.8 ug/mL (See Comment)
[2019-02-08] MEDS: Warfarin Sodium 5 MG TAB PO SCH (16:48)
[2019-02-08] MEDS ORDERED: Vancomycin HCl 750 MG in Sodium Chloride 0.9% 250 ML 250 ML IVPB SCH (17:00)
[2019-02-08] MEDS: tiZANidine HCl 4 MG TAB PO SCH (20:39)
[2019-02-08] MEDS: Pravastatin Sodium 20 MG TAB PO SCH (20:39)
[2019-02-08] MEDS: Polyethylene Glycol 3350 17 GM Packet PO SCH (20:40)
[2019-02-08] MEDS: HumaLOG 300 UNITS/3 ML VIAL SC PRN (21:30)
[2019-02-08] MEDS: Nystatin Powder 15 GM BOT TOP PRN (21:30)
[2019-02-09] MEDS: Levothyroxine Sodium 25 MCG TAB PO SCH (05:11)
[2019-02-09] MEDS: traMADol HCl 50 MG TAB PO PRN ×2 (06:33→20:42)
[2019-02-09] MEDS: Torsemide 20 MG TAB PO SCH ×2 (08:42→13:14)
[2019-02-09] MEDS: Gabapentin 100 MG CAP PO SCH ×2 (08:42→20:39)
[2019-02-09] MEDS: Docusate 100 MG CAP PO SCH (08:42)
[2019-02-09] MEDS: Fish Oil 1,000 MG CAP PO SCH (08:42)
[2019-02-09] MEDS: Spironolactone 25 MG TAB PO SCH (08:42)
[2019-02-09] MEDS: rOPINIRole HCl 2 MG TAB PO SCH ×2 (08:43→20:43)
[2019-02-09] MEDS: Saccharomyces boulardii 250 MG CAP PO SCH (08:44)
[2019-02-09] MEDS: metFORMIN 500 MG TAB PO SCH ×2 (08:44→17:26)
[2019-02-09] MEDS: Glimepiride 2 MG TAB PO SCH ×2 (08:44→17:26)
[2019-02-09] MEDS: Famotidine 20 MG TAB PO SCH ×2 (08:44→20:42)
[2019-02-09] MEDS: Potassium Chloride 20 MEQ TAB PO SCH ×3 (08:44→20:43)
[2019-02-09] MEDS: SITAGLIPTIN 50 MG PO SCH (08:45)
[2019-02-09] MEDS: LINACLOTIDE 290 MCG PO SCH (08:45)
[2019-02-09] MEDS: LIRAGLUTIDE 0.6 MG SC SCH (08:56)
[2019-02-09 16:33] LABS: Vancomycin, Random 21.3 ug/mL (See Comment)
[2019-02-09] MEDS: Warfarin Sodium 7.5 MG TAB PO SCH (17:28)
[2019-02-09] MEDS: Vancomycin HCl 750 MG in Sodium Chloride 0.9% 250 ML 250 ML IVPB SCH ×2 (19:35→19:36)
[2019-02-09] MEDS: tiZANidine HCl 4 MG TAB PO SCH (20:43)
[2019-02-09] MEDS: Pravastatin Sodium 20 MG TAB PO SCH (20:43)
[2019-02-09] MEDS: Polyethylene Glycol 3350 17 GM Packet PO SCH (20:43)
[2019-02-10] MEDS: Levothyroxine Sodium 25 MCG TAB PO SCH (05:06)
[2019-02-10] MEDS: Acetaminophen 325 MG TAB PO PRN ×2 (05:12→22:32)
[2019-02-10 05:40] LABS: INR-International Normal Ratio 2.6; Prothrombin Time 27.3 SEC (12.0-14.7)
[2019-02-10] MEDS: traMADol HCl 50 MG TAB PO PRN ×3 (07:27→22:32)
[2019-02-10] MEDS: LIRAGLUTIDE 0.6 MG SC SCH (09:20)
[2019-02-10] MEDS: Glimepiride 2 MG TAB PO SCH ×2 (09:28→16:59)
[2019-02-10] MEDS: Docusate 100 MG CAP PO SCH (09:28)
[2019-02-10] MEDS: Spironolactone 25 MG TAB PO SCH (09:28)
[2019-02-10] MEDS: metFORMIN 500 MG TAB PO SCH ×2 (09:28→16:59)
[2019-02-10] MEDS: Fish Oil 1,000 MG CAP PO SCH (09:28)
[2019-02-10] MEDS: rOPINIRole HCl 2 MG TAB PO SCH ×2 (09:29→21:14)
[2019-02-10] MEDS: Torsemide 20 MG TAB PO SCH ×2 (09:29→14:24)
[2019-02-10] MEDS: Famotidine 20 MG TAB PO SCH ×2 (09:29→21:15)
[2019-02-10] MEDS: Gabapentin 100 MG CAP PO SCH ×2 (09:30→21:15)
[2019-02-10] MEDS: Potassium Chloride 20 MEQ TAB PO SCH ×3 (09:30→21:14)
[2019-02-10] MEDS: LINACLOTIDE 290 MCG PO SCH (09:30)
[2019-02-10] MEDS: Saccharomyces boulardii 250 MG CAP PO SCH (09:30)
[2019-02-10] MEDS: SITAGLIPTIN 50 MG PO SCH (09:31)
[2019-02-10 16:51] LABS: Vancomycin, Trough 20.5 ug/mL
[2019-02-10] MEDS ORDERED: Vancomycin HCl 750 MG in Sodium Chloride 0.9% 250 ML 250 ML IVPB SCH (17:00)
[2019-02-10] MEDS: Warfarin Sodium 7.5 MG TAB PO SCH (17:05)
[2019-02-10] MEDS: tiZANidine HCl 4 MG TAB PO PRN (17:10)
[2019-02-10] MEDS: Pravastatin Sodium 20 MG TAB PO SCH (21:14)
[2019-02-10] MEDS: Polyethylene Glycol 3350 17 GM Packet PO SCH (21:15)
[2019-02-11] MEDS: Levothyroxine Sodium 25 MCG TAB PO SCH (05:39)
[2019-02-11] MEDS: Acetaminophen 325 MG TAB PO PRN (05:39)
[2019-02-11 06:04] LABS: INR-International Normal Ratio 2.8; Prothrombin Time 29.3 SEC (12.0-14.7)
[2019-02-11] MEDS: rOPINIRole HCl 2 MG TAB PO SCH (08:05)
[2019-02-11] MEDS: traMADol HCl 50 MG TAB PO PRN (08:05)
[2019-02-11] MEDS: metFORMIN 500 MG TAB PO SCH (08:05)
[2019-02-11] MEDS: Spironolactone 25 MG TAB PO SCH (08:06)
[2019-02-11] MEDS: Metolazone 5 MG TAB PO SCH (08:07)
[2019-02-11] MEDS: Saccharomyces boulardii 250 MG CAP PO SCH (08:07)
[2019-02-11] MEDS: Famotidine 20 MG TAB PO SCH (08:07)
[2019-02-11] MEDS: Potassium Chloride 20 MEQ TAB PO SCH (08:08)
[2019-02-11] MEDS: Torsemide 20 MG TAB PO SCH ×2 (08:08→13:25)
[2019-02-11] MEDS: Docusate 100 MG CAP PO SCH (08:08)
[2019-02-11] MEDS: Glimepiride 2 MG TAB PO SCH (08:08)
[2019-02-11] MEDS: LINACLOTIDE 290 MCG PO SCH (08:09)
[2019-02-11] MEDS: Gabapentin 100 MG CAP PO SCH (08:09)
[2019-02-11] MEDS: Fish Oil 1,000 MG CAP PO SCH (08:09)
[2019-02-11] MEDS: SITAGLIPTIN 50 MG PO SCH (08:09)
[2019-02-11] MEDS: LIRAGLUTIDE 0.6 MG SC SCH (08:10)
[2019-02-11] MEDS: tiZANidine HCl 4 MG TAB PO PRN (11:48)
[2019-02-11 14:32] VITALS: BP 112/57; TEMP 97.5
--- NOTE | 2019-02-12 11:24 | DIS ---
DATE OF ADMISSION: 02/04/2019 DATE OF DISCHARGE: 02/11/2019 ADMISSION DIAGNOSIS: Cellulitis of bilateral lower extremities. SECONDARY DIAGNOSES: Chronic atrial fibrillation, type 2 diabetes mellitus, chronic diastolic heart failure, hypertension, dyslipidemia, lymphedema, chronic kidney disease stage 3, hypothyroidism, and physical deconditioning. PROCEDURES: None. HOSPITAL COURSE: A 73-year-old female presented to the [facility] Emergency Department with cellulitis affecting bilateral lower extremities. She has been treated with oral antibiotics in the outpatient setting prior to this, however, did not clear her infection. She reported discomfort to the lower extremities in conjunction with worsening erythema, however, she states she was not febrile at home. She does have chronic mild erythema related to underlying lymphedema. She was started on IV vancomycin and admitted to the floor. The patient's lab work was reassuring overall with no leukocytosis and a normal lactic acid level. Her vancomycin did have to be held for a number of days secondary to elevated trough level. However, she did receive IV Levaquin over this time period as well. The patient received physical therapy and occupational therapy secondary to her generalized weakness and physical deconditioning. She did improve in regard to her functional status and has [facility] at home to resume further physical therapy. The patient's symptoms of cellulitis gradually improved along with her conditioning to the point, where she is able to discharge back to her home setting. DISPOSITION: She will discharge home with having a family member living nearby. She lives in [facility] for further physical therapy and follow up with myself in the clinic in a week. DISCHARGE MEDICATIONS: Include: 1. Victoza 0.6 mg subcutaneously daily. 2. Metolazone 2.5 mg on Monday, Monday, and Monday. 3. Januvia 50 mg daily. 4. Ropinirole 4 mg b.i.d. 5. Pravastatin 10 mg at bedtime. 6. Spironolactone 37.5 mg daily. 7. Glimepiride 1 mg b.i.d. 8. Coumadin 7.5 mg on Monday, , Monday, Monday; 5 mg on Monday, Monday, and Monday. 9. Tizanidine q.8 hours p.r.n. 10. Metoprolol succinate 25 mg b.i.d. 11. Fish oil 1200 mg daily. 12. Torsemide 40 mg b.i.d. 13. Gabapentin 100 mg b.i.d. 14. Metformin 500 mg b.i.d. 15. Potassium chloride 20 mEq t.i.d. 16. Linzess 290 mcg daily. 17. Levothyroxine 25 mcg daily. 18. MiraLAX 17 g daily p.r.n. 19. Zofran 4 mg q.6 hours p.r.n. 20. Colace 100 mg daily. 21. Tramadol 50 mg t.i.d. Job ID: [id number] MTDD
== END 2019-02-11 14:28 | disposition home or self-care (01) | DRG 948 ==
LOC: BURMED 11:27
PROVIDERS: ADMIT Family Medicine; ATTEND Family Medicine
DX: R53.81 Other malaise (principal); L03.116 Cellulitis of left lower limb; N18.4 Chronic kidney disease, stage 4 (severe); I13.0 Hypertensive heart and chronic kidney disease with heart failure and stage 1 through stage 4 chronic kidney disease, or unspecified chronic kidney disease; I50.32 Chronic diastolic (congestive) heart failure; L03.115 Cellulitis of right lower limb; I48.2 Chronic atrial fibrillation; E11.22 Type 2 diabetes mellitus with diabetic chronic kidney disease; E03.9 Hypothyroidism, unspecified; E78.5 Hyperlipidemia, unspecified; Z90.49 Acquired absence of other specified parts of digestive tract; Z98.51 Tubal ligation status; Z88.0 Allergy status to penicillin; Z88.2 Allergy status to sulfonamides; Z88.8 Allergy status to other drugs, medicaments and biological substances; Z79.84 Long term (current) use of oral hypoglycemic drugs; Z79.899 Other long term (current) drug therapy
CPT/HCPCS: 36415; 36416; 80053; 80202; 85014; 85018; 85025; 85049; 85610; J1956; J3370; J7050; Q0162

== ENCOUNTER 2019-02-18 10:12 | Outpatient (CLI) | payer MEDICARE, MEDICAID ==
--- NOTE | 2019-02-18 14:40 | RAD ---
LEFT HIP 2 VIEWS: DATE: 02/18/2019. FINDINGS: Degenerative changes are present around the hip joint consisting of osteophytes. No fracture, disloc ation, or joint space narrowing was seen. The adjacent pubic ring appears intact. IMPRESSION: Degenerative changes. POS: HOME
== END 2019-02-18 10:13 | disposition home or self-care (01) ==
LOC: BURRAD 10:12
PROVIDERS: ATTEND Family Medicine
DX: M25.552 Pain in left hip (principal); M16.12 Unilateral primary osteoarthritis, left hip

== ENCOUNTER 2019-05-29 16:34 | Inpatient (IN) | payer MEDICARE, MEDICAID ==
[2019-05-29 17:24] LABS: #Basophils 0.1 thou/uL (0.0-0.2); #Eosinphils 0.2 thou/uL (0.0-0.7); #Lymphocytes 1.5 thou/uL (1.20-3.40); #Monocytes 0.8 thou/uL (0.11-0.59); #Neutrophils 4.1 thou/uL (1.40-6.50); %Basophils 0.9 % (0.0-1.0); %Eosinophils 2.3 % (0.0-10.0); %Monocytes 11.3 % (0.0-10.0); %Neutrophils 62.5 % (42.0-75.0); Hemoglobin 12.4 g/dL (12.0-16.0); Mean Corpuscular HGB CONC 32.6 g/dL (32.0-36.0); Mean Corpuscular Hemoglobin 27.6 pg (27.0-31.0); Mean Corpuscular Volume 84.7 fL (78.0-98.0); Platelet Count 178 thou/uL (130-400); RBC Distribution Width 13.9 % (11.5-14.5); Red Blood Cell (RBC) Count 4.48 mill/uL (4.20-5.40); White Blood Cell (WBC) Count 6.6 thou/uL (4.8-10.8)
[2019-05-29 17:32] LABS: INR-International Normal Ratio 2.2; PTT 39.4 SEC (22.9-36.1); Prothrombin Time 24.1 SEC (12.0-14.7)
[2019-05-29 17:41] LABS: ALT (SGPT) 45 U/L (8-55); AST (SGOT) 41 U/L (5-34); Albumin 3.5 g/dL (3.4-4.8); Alkaline Phosphatase 165 U/L (40-110); Anion Gap 17 mmol/L (10-20); BUN (Urea Nitrogen) 70 mg/dL (9.8-20.1); Bilirubin, Total 0.5 mg/dL (0.2-1.2); Calc. Creatinine Clearance 0 mL/min (70-130); Calcium 9.6 mg/dL (7.8-10.44); Carbon Dioxide 25 mmol/L (23-31); Chloride 94 mmol/L (98-107); Estimated GFR-MDRD 27; Globulin 4.5 g/dL (2.4-3.5); Glucose 229 mg/dL (83-110); Potassium 3.7 mmol/L (3.5-5.1); Sodium 132 mmol/L (136-145)
[2019-05-29] MEDS ORDERED: Promethazine 25 MG TAB PO PRN (19:42)
[2019-05-29] MEDS ORDERED: Ondansetron ODT 4 MG TAB SL PRN (19:42)
[2019-05-29] MEDS ORDERED: Polyethylene Glycol 3350 17 GM Packet PO PRN (19:42)
[2019-05-29] MEDS ORDERED: Acetaminophen 325 MG TAB PO PRN (19:43)
[2019-05-29] MEDS ORDERED: Ondansetron PF 4 MG/2 ML Vial SLOW IVP PRN (19:43)
[2019-05-29] MEDS ORDERED: Ondansetron ODT 4 MG TAB PO PRN (19:43)
[2019-05-29] MEDS ORDERED: Dextrose 50% Abboject 50 ML SYRINGE SLOW IVP PRN (19:59)
[2019-05-29] MEDS ORDERED: Dextrose 5% in Water 1,000 ML IV PRN (19:59)
[2019-05-29] MEDS ORDERED: HumaLOG 300 UNITS/3 ML VIAL SC PRN (19:59)
[2019-05-29] MEDS ORDERED: Furosemide 40 MG/4 ML VIAL SLOW IVP SCH (20:45)
[2019-05-29] MEDS: Gabapentin 100 MG CAP PO SCH (20:46)
[2019-05-29] MEDS: tiZANidine HCl 4 MG TAB PO SCH (20:46)
[2019-05-29] MEDS: Pravastatin Sodium 20 MG TAB PO SCH (20:46)
[2019-05-29] MEDS: Famotidine 20 MG TAB PO SCH (20:46)
[2019-05-29] MEDS: Spironolactone 25 MG TAB PO SCH (20:46)
[2019-05-29] MEDS: Potassium Chloride 20 MEQ TAB PO SCH (20:46)
[2019-05-29] MEDS: HYDROcodone/Acetaminophen 5/325 mg Tablet PO PRN (20:52)
[2019-05-29] MEDS ORDERED: rOPINIRole HCl 0.25 MG TAB PO SCH ×2 (21:00→21:30)
[2019-05-29] MEDS ORDERED: rOPINIRole HCl 2 MG TAB PO SCH (21:30)
--- NOTE | 2019-05-29 21:43 | HP ---
CHIEF COMPLAINT: Lower extremity redness and swelling. HISTORY OF PRESENT ILLNESS: Ms. Wheatley is a 74-year-old female with past medical history of morbid obesity, type 2 diabetes, and chronic lower extremity edema with multiple medication allergies, who presented to the emergency department this evening with complaint of worsening lower extremity swelling and redness. According to the patient, she had a weight gain that essentially started approximately 2 weeks ago with increasing redness to the lower extremities. Her PCP had instructed her that if she weighed over a certain amount to increase her metolazone from 2.5 mg one day Monday and Monday to 5 mg daily and she did so. However, she reports very little weight loss and diuresis from this and progressive edema. Home health has been coming out and applying Unna boot. However, the dressings would become saturated over the course of the time and she now has some open wounds. She has not had any fever. Otherwise, has been at her baseline health except for some occasional intermittent vomiting over the past week and some diarrhea that started today. PAST MEDICAL HISTORY: 1. Hypertension. 2. Hyperlipidemia. 3. Hypothyroidism. 4. Diabetes mellitus type 2. 5. Chronic atrial fibrillation. 6. Congestive heart failure with last echocardiogram on October 05, 2018, with preserved left ventricular ejection fraction at 50% to 55%, moderately dilated left atrium , normal right atrium, trace mitral regurgitation, mild tricuspid regurgitation. 7. Frozen right shoulder. 8. Chronic kidney disease stage 3, with baseline creatinine of 1.2 to 1.5. 9. Lymphedema. PAST SURGICAL HISTORY: 1. Cholecystectomy. 2. Tubal ligation. 3. Bilateral cataracts. SOCIAL HISTORY: Denies alcohol, illicit drugs, or tobacco. ALLERGIES: CLINDAMYCIN, BENADRYL, METHYLPHENIDATE, PENICILLIN, SULFA, REPORTS THAT HER LAST HOSPITALIZATION SHE HAD A POSSIBLE REACTION TO FLUOROQUINOLONES. FAMILY HISTORY: Noncontributory. MEDICATIONS: 1. Tizanidine 4 mg p.o. daily. 2. Tramadol 50 mg 1 p.o. t.i.d. 3. Levothyroxine 50 mcg half tablet once a day. 4. Linzess 290 mcg one p.o. daily. 5. Glimepiride 2 mg p.o. b.i.d. 6. Januvia 50 mg daily. 7. Colace 100 mg daily. 8. Metformin ER 500 mg b.i.d. 9. Gabapentin 100 mg b.i.d. 10. Victoza 0.6 mg subcu daily. 11. Fish oil 1200 mg once a day. 12. Zofran ODT 4 mg q.4 hours p.r.n. 13. Metolazone half p.o. Monday, Monday, and Monday on dates that she is below her baseline and 5 mg one whole tablet daily when she is above her weight baseline. 14. Promethazine 25 mg p.o. b.i.d. p.r.n. 15. Spironolactone 50 mg half b.i.d. 16. Metoprolol 25 mg p.o. b.i.d. 17. Ropinirole 3 mg one and a half p.o. b.i.d. 18. Warfarin 5 mg on Monday and Monday and 7.5 mg all other days. 19. Pravastatin 10 mg p.o. at bedtime. 20. Potassium chloride ER 10 mEq 2 p.o. t.i.d. REVIEW OF SYSTEMS: A 10-system review above is negative except for HPI. PHYSICAL EXAMINATION: VITAL SIGNS: Temp 97.5, pulse 75, respirations 16, O2 saturation 100% on room air, and blood pressure 126/64. GENERAL: Well-developed, morbidly obese female, pleasant, alert and oriented x4, sitting up on the side of the bed with her legs below her, in no acute distress. HEENT: Normocephalic and atraumatic. Pupils are equally round and reactive to light and accommodation, extraocular muscles intact. Nares are patent without discharge. Tongue protrudes on the midline. NECK: Supple without lymphadenopathy, thyromegaly, JVD, or bruit. HEART: Irregularly irregular. Normal S1 and S2. No murmurs, clicks, rubs, or gallops. LUNGS: Clear to auscultation with good air entry bilaterally. No crackles or wheezes. No increased work of breathing. ABDOMEN: Positive bowel sounds in all 4 quadrants. Soft, nontender, and nondistended. No masses, guarding, or rebound tenderness. EXTREMITIES: No cyanosis or clubbing. 3+ nonpitting edema with blistering, oozing, changes to the lower extremities below the knee with erythema and one open wound to the lateral right calf measuring approximately 2 cm and another to the left medial calf measuring 1.5 cm roughly. The erythema extends to both feet, but spares the toes bilaterally. NEUROLOGIC: Cranial nerves 2 through 12 grossly intact with no focal deficits. LABORATORY DATA: White count 6.6 with 62% neutrophils, 23% lymphocytes, hemoglobin 12.4, hematocrit 38, and platelet 178. PT 24.1, INR 2.2, and PTT 39.4. Sodium 132, potassium 3.7, chloride 94, CO2 of 25, BUN 70, creatinine 1.82, glucose 229, lactic acid 1.6, T bilirubin 0.5, AST 41, ALT 45, and alkaline phosphatase 165. ASSESSMENT AND PLAN: 1. Bilateral lower extremity lymphedema with cellulitis. The patient with multiple oral medication allergies. We will clarify her Levaquin allergy with her PCP, but for now, started her on vancomycin with pharmacy to monitor troughs and adjust dosage. Blood cultures were performed in the emergency room and are pending. We will order a B type natriuretic peptide and compare to her previous baseline. She has no symptoms of acute congestive failure at this time. 2. Chronic diastolic congestive heart failure. Again, we will order a BNP for the a.m. We will continue her Aldactone, metolazone, and beta-migdalia. She has preserved left ventricular ejection fraction documented in October of this year. She is not on RM inhibitor or angiotensin receptor migdalia at this time, reasons unknown. We will defer to PCP. We will give one dose of IV Lasix, order daily weights, sodium restriction, 1.5 L fluid restriction. 3. Open wounds to bilateral lower extremities. We will have wound care consult with physical therapy and lymphedema management with occupational therapy with dressing changes. 4. Diabetes mellitus. The patient will have Accu-Cheks before meals and at bedtime, we will place on a mild algorithm with lispro. Continue home regimen. 5. Hypothyroidism. The patient's last TSH was done in October, so we will update that and continue her levothyroxine. 6. Hyperlipidemia. The patient will be continued on her statin. 7. Diarrhea. The patient's MiraLAX will be held. 8. Nausea and vomiting. The patient's ondansetron and promethazine will be continued. 9. Hypertension. We will monitor and continue home regimen. 10. Chronic atrial fibrillation. Her INR is therapeutic. We will continue her warfarin at her current dose and have pharmacy monitor and adjust p.r.n. 11. Chronic kidney disease stage 3. Her creatinine is above her baseline. This may be due to hypervolemia. We will recheck in the morning after IV Lasix. 12. Prophylaxis. We will order Pepcid b.i.d. and the patient is already on anticoagulation. CODE STATUS: The patient desires full code. Job ID: [id number] MTDD
[2019-05-30] MEDS: Levothyroxine Sodium 25 MCG TAB PO SCH (04:56)
[2019-05-30 05:30] LABS: #Basophils 0.1 thou/uL (0.0-0.2); #Eosinphils 0.2 thou/uL (0.0-0.7); #Lymphocytes 1.2 thou/uL (1.20-3.40); #Monocytes 0.6 thou/uL (0.11-0.59); #Neutrophils 3.4 thou/uL (1.40-6.50); %Eosinophils 3.3 % (0.0-10.0); %Lymphocytes 21.7 % (21.0-51.0); %Monocytes 11.4 % (0.0-10.0); %Neutrophils 62.6 % (42.0-75.0); Mean Corpuscular HGB CONC 31.8 g/dL (32.0-36.0); Mean Corpuscular Hemoglobin 27.2 pg (27.0-31.0); Mean Corpuscular Volume 85.6 fL (78.0-98.0); Mean Platelet Volume 7.8 fL (7.4-10.4); Platelet Count 158 thou/uL (130-400); White Blood Cell (WBC) Count 5.4 thou/uL (4.8-10.8)
[2019-05-30 05:36] LABS: INR-International Normal Ratio 2.1; Prothrombin Time 23.5 SEC (12.0-14.7)
[2019-05-30 05:40] LABS: Anion Gap 15 mmol/L (10-20)
[2019-05-30 06:36] LABS: ALT (SGPT) 39 U/L (8-55); AST (SGOT) 36 U/L (5-34); Albumin 3.2 g/dL (3.4-4.8); Alkaline Phosphatase 159 U/L (40-110); BUN (Urea Nitrogen) 64 mg/dL (9.8-20.1); Bilirubin, Total 0.9 mg/dL (0.2-1.2); Calc. Creatinine Clearance 75 mL/min (70-130); Calcium 9.3 mg/dL (7.8-10.44); Carbon Dioxide 26 mmol/L (23-31); Chloride 98 mmol/L (98-107); Estimated GFR-MDRD 36; Glucose 125 mg/dL (83-110); Potassium 3.5 mmol/L (3.5-5.1); Protein, Total 7.2 g/dL (6.0-8.3); Sodium 135 mmol/L (136-145)
[2019-05-30] MEDS ORDERED: Docusate 100 MG CAP PO PRN (07:30)
[2019-05-30] MEDS: Glimepiride 2 MG TAB PO SCH ×2 (07:59→16:55)
[2019-05-30] MEDS: HYDROcodone/Acetaminophen 5/325 mg Tablet PO PRN ×2 (08:37→20:06)
[2019-05-30] MEDS ORDERED: Non-Formulary Item 1 EACH (Sitagliptin Phosphate [Januvia] 50 MG) PO SCH (09:00)
[2019-05-30] MEDS ORDERED: Docusate 100 MG CAP PO SCH (09:00)
[2019-05-30] MEDS: rOPINIRole HCl 2 MG TAB PO SCH ×2 (09:07→20:05)
[2019-05-30] MEDS: Gabapentin 100 MG CAP PO SCH ×2 (09:07→20:04)
[2019-05-30] MEDS: Potassium Chloride 20 MEQ TAB PO SCH ×3 (09:08→20:04)
[2019-05-30] MEDS: metFORMIN 500 MG TAB PO SCH ×2 (09:08→18:13)
[2019-05-30] MEDS: Alogliptin 6.25 MG TAB PO SCH (09:09)
[2019-05-30] MEDS: Fish Oil 1,000 MG CAP PO SCH (09:09)
[2019-05-30] MEDS: Spironolactone 25 MG TAB PO SCH ×2 (09:09→20:04)
[2019-05-30] MEDS: Saccharomyces boulardii 250 MG CAP PO SCH (09:15)
[2019-05-30] MEDS: rOPINIRole HCl 0.25 MG TAB PO SCH ×2 (09:21→20:05)
[2019-05-30] MEDS: Liraglutide [Victoza 3-Pak] 0.6 MG SC SCH (09:23)
[2019-05-30] MEDS: Vancomycin HCl 1 GM in Sodium Chloride 0.9% 250 ML 250 ML IVPB SCH ×2 (16:49→18:13)
[2019-05-30] MEDS: HumaLOG 300 UNITS/3 ML VIAL SC PRN (17:12)
[2019-05-30] MEDS: Warfarin Sodium 7.5 MG TAB PO SCH (17:17)
[2019-05-30] MEDS: tiZANidine HCl 4 MG TAB PO SCH (20:05)
[2019-05-30] MEDS: Pravastatin Sodium 20 MG TAB PO SCH (20:05)
[2019-05-30] MEDS: Famotidine 20 MG TAB PO SCH (20:06)
[2019-05-30] MEDS ORDERED: FLU VACC TS2019-20(65YR UP)/PF 180 MCG/0.5 ML SYRINGE IM ONE (21:00)
[2019-05-30] MEDS ORDERED: Prevnar 13-Val Conj/PF 0.5 ML SYRINGE IM ONE (21:00)
[2019-05-30 21:21] VITALS: BMI 50.0
[2019-05-31] MEDS: HYDROcodone/Acetaminophen 5/325 mg Tablet PO PRN ×2 (04:29→11:42)
[2019-05-31 05:33] LABS: INR-International Normal Ratio 1.9; Prothrombin Time 21.6 SEC (12.0-14.7)
[2019-05-31] MEDS: Levothyroxine Sodium 25 MCG TAB PO SCH (05:56)
[2019-05-31] MEDS: Glimepiride 2 MG TAB PO SCH ×2 (08:26→17:54)
[2019-05-31] MEDS: rOPINIRole HCl 2 MG TAB PO SCH ×2 (08:32→21:07)
[2019-05-31] MEDS: rOPINIRole HCl 0.25 MG TAB PO SCH ×2 (08:33→21:07)
[2019-05-31] MEDS: Metolazone 5 MG TAB PO SCH (08:34)
[2019-05-31] MEDS: Saccharomyces boulardii 250 MG CAP PO SCH (08:35)
[2019-05-31] MEDS: Gabapentin 100 MG CAP PO SCH ×2 (08:35→21:09)
[2019-05-31] MEDS: Potassium Chloride 20 MEQ TAB PO SCH ×3 (08:35→21:08)
[2019-05-31] MEDS: Alogliptin 6.25 MG TAB PO SCH (08:36)
[2019-05-31] MEDS: metFORMIN 500 MG TAB PO SCH ×2 (08:36→17:55)
[2019-05-31] MEDS: Fish Oil 1,000 MG CAP PO SCH (08:37)
[2019-05-31] MEDS: Spironolactone 25 MG TAB PO SCH ×2 (08:37→21:09)
[2019-05-31] MEDS: Liraglutide [Victoza 3-Pak] 0.6 MG SC SCH (08:42)
[2019-05-31] MEDS: HumaLOG 300 UNITS/3 ML VIAL SC PRN (12:00)
[2019-05-31 16:29] LABS: Vancomycin, Trough 55.7 ug/mL
[2019-05-31] MEDS ORDERED: Warfarin Sodium 5 MG TAB PO SCH (17:00)
[2019-05-31] MEDS ORDERED: Loperamide HCl 2 MG CAP PO PRN ×2 (17:19→20:03)
[2019-05-31] MEDS: Acetaminophen 325 MG TAB PO PRN (17:46)
[2019-05-31] MEDS: Vancomycin HCl 1 GM in Sodium Chloride 0.9% 250 ML 250 ML IVPB SCH ×2 (17:56→18:33)
[2019-05-31] MEDS: Famotidine 20 MG TAB PO SCH (21:06)
[2019-05-31] MEDS: Pravastatin Sodium 20 MG TAB PO SCH (21:07)
[2019-05-31] MEDS: tiZANidine HCl 4 MG TAB PO SCH (21:07)
[2019-05-31] MEDS: traMADol HCl 50 MG TAB PO PRN (23:34)
[2019-06-01] MEDS: Levothyroxine Sodium 25 MCG TAB PO SCH (05:01)
[2019-06-01 05:06] LABS: Prothrombin Time 22.8 SEC (12.0-14.7)
[2019-06-01] MEDS: Glimepiride 2 MG TAB PO SCH ×2 (07:57→16:40)
[2019-06-01] MEDS: Gabapentin 100 MG CAP PO SCH ×2 (07:59→20:59)
[2019-06-01] MEDS: Alogliptin 6.25 MG TAB PO SCH (08:00)
[2019-06-01] MEDS: Saccharomyces boulardii 250 MG CAP PO SCH (08:00)
[2019-06-01] MEDS: metFORMIN 500 MG TAB PO SCH ×2 (08:01→16:41)
[2019-06-01] MEDS: rOPINIRole HCl 2 MG TAB PO SCH ×2 (08:01→20:57)
[2019-06-01] MEDS: Metolazone 5 MG TAB PO SCH (08:01)
[2019-06-01] MEDS: rOPINIRole HCl 0.25 MG TAB PO SCH ×2 (08:01→20:57)
[2019-06-01] MEDS: Fish Oil 1,000 MG CAP PO SCH (08:02)
[2019-06-01] MEDS: Spironolactone 25 MG TAB PO SCH ×2 (08:02→20:59)
[2019-06-01] MEDS: Potassium Chloride 20 MEQ TAB PO SCH ×3 (08:02→20:59)
[2019-06-01] MEDS: Liraglutide [Victoza 3-Pak] 0.6 MG SC SCH (08:03)
[2019-06-01] MEDS: HYDROcodone/Acetaminophen 5/325 mg Tablet PO PRN (09:09)
[2019-06-01] MEDS: Warfarin Sodium 7.5 MG TAB PO SCH (16:42)
[2019-06-01] MEDS ORDERED: Furosemide 40 MG/4 ML VIAL SLOW IVP SCH (19:00)
[2019-06-01] MEDS ORDERED: Vancomycin HCl 500 MG in Sodium Chloride 0.9% 100 ML IVPB SCH (20:00)
[2019-06-01] MEDS: Pravastatin Sodium 20 MG TAB PO SCH (20:57)
[2019-06-01] MEDS: tiZANidine HCl 4 MG TAB PO SCH (20:57)
[2019-06-01] MEDS: Famotidine 20 MG TAB PO SCH (20:59)
[2019-06-01] MEDS: hydrOXYzine 10 MG TAB PO PRN (21:16)
[2019-06-02] MEDS: Levothyroxine Sodium 25 MCG TAB PO SCH (05:03)
[2019-06-02 05:32] LABS: INR-International Normal Ratio 2.3; Prothrombin Time 24.8 SEC (12.0-14.7)
[2019-06-02 05:41] LABS: Anion Gap 14 mmol/L (10-20); Calc. Creatinine Clearance 81 mL/min (70-130); Carbon Dioxide 22 mmol/L (23-31); Chloride 99 mmol/L (98-107); Estimated GFR-MDRD 39; Glucose 113 mg/dL (83-110); Potassium 4.3 mmol/L (3.5-5.1)
[2019-06-02] MEDS: traMADol HCl 50 MG TAB PO PRN (05:44)
[2019-06-02 06:03] LABS: BUN (Urea Nitrogen) 47 mg/dL (9.8-20.1); Sodium 131 mmol/L (136-145)
[2019-06-02] MEDS: Metolazone 5 MG TAB PO SCH (08:44)
[2019-06-02] MEDS: Saccharomyces boulardii 250 MG CAP PO SCH (08:44)
[2019-06-02] MEDS: Spironolactone 25 MG TAB PO SCH ×2 (08:45→19:49)
[2019-06-02] MEDS: Fish Oil 1,000 MG CAP PO SCH (08:45)
[2019-06-02] MEDS: Potassium Chloride 20 MEQ TAB PO SCH ×3 (08:45→19:49)
[2019-06-02] MEDS: Gabapentin 100 MG CAP PO SCH ×2 (08:45→19:49)
[2019-06-02] MEDS: rOPINIRole HCl 0.25 MG TAB PO SCH ×2 (08:45→19:48)
[2019-06-02] MEDS: rOPINIRole HCl 2 MG TAB PO SCH ×2 (08:46→19:48)
[2019-06-02] MEDS: Alogliptin 6.25 MG TAB PO SCH (08:47)
[2019-06-02] MEDS: Glimepiride 2 MG TAB PO SCH ×2 (08:48→16:20)
[2019-06-02] MEDS: metFORMIN 500 MG TAB PO SCH ×2 (08:49→16:22)
[2019-06-02] MEDS: Liraglutide [Victoza 3-Pak] 0.6 MG SC SCH (08:54)
[2019-06-02] MEDS ORDERED: Furosemide 40 MG/4 ML VIAL SLOW IVP SCH (09:00)
[2019-06-02] MEDS: Warfarin Sodium 7.5 MG TAB PO SCH (16:22)
[2019-06-02] MEDS: Acetaminophen 325 MG TAB PO PRN (16:25)
[2019-06-02 17:25] VITALS: BP 108/52; TEMP 97.9
[2019-06-02] MEDS: Famotidine 20 MG TAB PO SCH (19:49)
[2019-06-02] MEDS: Pravastatin Sodium 20 MG TAB PO SCH (19:50)
[2019-06-02] MEDS: tiZANidine HCl 4 MG TAB PO SCH (19:51)
[2019-06-02] MEDS: hydrOXYzine 10 MG TAB PO PRN (19:54)
[2019-06-03] MEDS ORDERED: Furosemide 40 MG/4 ML VIAL SLOW IVP SCH (06:00)
--- NOTE | 2019-06-04 06:21 | PQF ---
[employer] Reports Winform ViewerBALTAAZR RICHARD ALEXANDRU DE PAZ DO [id number] CLINICAL DOCUMENTATION CLARIFICATION FORM: POST DISCHARGE Addendum to original discharge summary date: ____ Late entry note date: __ DATE: 06/04/2019 ATTN:ALEXANDRU GRADY DO Please exercise your independent, professional judgment in responding to the clarification form. Clinical indicators are provided on the bottom of this form for your review Please check appropriate box(s): [ ] Bilateral Lower Extremity Cellulitis due to Diabetes Mellitus [ ] Bilateral Lower Extremity Cellulitis not due to Diabetes Mellitus [ ] Other diagnosis [ ] Unable to determine In addition, please specify: Present on Admission (POA): [ ] Yes [ ] No [ ] Unable to determine CLINICAL INDICATORS - SIGNS / SYMPTOMS / LABS Complaining of worsening lower extremity swelling - Documented in H&P on 05/29 by ALEXANDRU DE PAZ DO Bilateral Lower Extremity Cellulitis with lymphedema - Documented in H&P on by ALEXANDRU DE PAZ DO Diabetes mellitus - Documented in H&P on 05/29 by ALEXANDRU DE PAZ DO RISK FACTORS HTN - Documented in H&P on 05/29 by ALEXANDRU DE PAZ DO Chroic CHF diastolic - Documented in H&P on 05/29 by ALEXANDRU DE PAZ DO Hx of type 2 DM CKD 3 TREATMENTS: Now started her on Vancomycin with pharmacy to monitor through and adjust dosage - Documented in H&P on 05/29 by ALEXANDRU DE PAZ DO Patient will have acute check before meals and at bedtime - Documented in H&P on 05/29 by ALEXANDRU DE PAZ DO [employer](This form is maintained as a part of the permanent medical record) 2014 [employer]. All Rights Reserved [email or web address] [not provided] MTDD
== END 2019-06-02 21:50 | disposition swing bed (61) | DRG 603 ==
LOC: BURERS 16:34 → BURMED 17:58
PROVIDERS: ADMIT Family Medicine; ATTEND Family Medicine
DX: L03.116 Cellulitis of left lower limb (principal); I48.20 Chronic atrial fibrillation, unspecified; I13.0 Hypertensive heart and chronic kidney disease with heart failure and stage 1 through stage 4 chronic kidney disease, or unspecified chronic kidney disease; I50.32 Chronic diastolic (congestive) heart failure; Z68.43 Body mass index [BMI] 50.0-59.9, adult; L03.115 Cellulitis of right lower limb; E78.5 Hyperlipidemia, unspecified; E03.9 Hypothyroidism, unspecified; E11.22 Type 2 diabetes mellitus with diabetic chronic kidney disease; N18.3 Chronic kidney disease, stage 3 (moderate); Z90.49 Acquired absence of other specified parts of digestive tract; Z98.42 Cataract extraction status, left eye; Z98.41 Cataract extraction status, right eye; Z98.51 Tubal ligation status; Z88.0 Allergy status to penicillin; Z88.8 Allergy status to other drugs, medicaments and biological substances; Z88.2 Allergy status to sulfonamides; Z79.84 Long term (current) use of oral hypoglycemic drugs; Z79.01 Long term (current) use of anticoagulants; Z79.899 Other long term (current) drug therapy; E66.01 Morbid (severe) obesity due to excess calories
CPT/HCPCS: 36415; 36416; 80048; 80053; 80202; 83605; 83880; 84443; 85025; 85610; 85730; 87040; J1940; J3370; J7050; Q0169

== ENCOUNTER 2019-07-23 12:50 | Emergency (ER) | payer MEDICARE, MEDICAID ==
[2019-07-23 13:28] LABS: #Basophils 0.1 thou/uL (0.0-0.2); #Eosinphils 0.2 thou/uL (0.0-0.7); #Monocytes 0.7 thou/uL (0.11-0.59); #Neutrophils 4.7 thou/uL (1.40-6.50); %Basophils 1.8 % (0.0-1.0); %Eosinophils 2.6 % (0.0-10.0); %Lymphocytes 25.5 % (21.0-51.0); %Monocytes 9.4 % (0.0-10.0); %Neutrophils 60.7 % (42.0-75.0); Hemoglobin 11.7 g/dL (12.0-16.0); Mean Corpuscular HGB CONC 32.6 g/dL (32.0-36.0); Mean Corpuscular Hemoglobin 27.4 pg (27.0-31.0); Mean Corpuscular Volume 84.1 fL (78.0-98.0); Mean Platelet Volume 8.4 fL (7.4-10.4); Platelet Count 168 thou/uL (130-400); RBC Distribution Width 14.9 % (11.5-14.5); Red Blood Cell (RBC) Count 4.29 mill/uL (4.20-5.40); White Blood Cell (WBC) Count 7.7 thou/uL (4.8-10.8)
[2019-07-23 13:45] LABS: ALT (SGPT) 32 U/L (8-55); AST (SGOT) 32 U/L (5-34); Albumin 3.3 g/dL (3.4-4.8); Alkaline Phosphatase 137 U/L (40-110); Anion Gap 15 mmol/L (10-20); BUN (Urea Nitrogen) 58 mg/dL (9.8-20.1); Bilirubin, Total 0.8 mg/dL (0.2-1.2); Calc. Creatinine Clearance 0 mL/min (70-130); Calcium 9.1 mg/dL (7.8-10.44); Carbon Dioxide 25 mmol/L (23-31); Chloride 95 mmol/L (98-107); Estimated GFR-MDRD 30; Globulin 4.2 g/dL (2.4-3.5); Glucose 261 mg/dL (83-110); Protein, Total 7.5 g/dL (6.0-8.3); Sodium 131 mmol/L (136-145)
== END 2019-07-23 14:16 | disposition home or self-care (01) ==
LOC: BURERS 12:50
DX: E11.65 Type 2 diabetes mellitus with hyperglycemia (principal); I89.0 Lymphedema, not elsewhere classified; I11.0 Hypertensive heart disease with heart failure; I50.9 Heart failure, unspecified; E03.9 Hypothyroidism, unspecified; E78.00 Pure hypercholesterolemia, unspecified; I48.91 Unspecified atrial fibrillation; Z79.899 Other long term (current) drug therapy; Z79.01 Long term (current) use of anticoagulants; Z79.84 Long term (current) use of oral hypoglycemic drugs
CPT/HCPCS: 36416; 80053; 83880; 85025; 96360

== ENCOUNTER 2019-10-09 20:22 | Emergency (ER) | payer MEDICARE, MEDICAID ==
[2019-10-09 21:11] LABS: INR-International Normal Ratio 1.9; PTT 38.8 SEC (22.9-36.1); Prothrombin Time 21.8 sec (12.0-14.7)
[2019-10-09 21:15] LABS: Anisocytosis SLIGHT = 6-15 cells (100X) (0-5/hpf); Band 2 % (5-11); Eosinophils 3 % (0-10); Hemoglobin 11.8 g/dL (12.0-16.0); Lymphocytes 18 % (21-51); MDiff Complete? YES; Mean Corpuscular HGB CONC 32.2 g/dL (32.0-36.0); Mean Corpuscular Hemoglobin 28.5 pg (27.0-31.0); Mean Corpuscular Volume 88.5 fL (78.0-98.0); Mean Platelet Volume 7.5 fL (7.4-10.4); Monocytes 12 % (0-10); Neutrophil 63 % (42-75); Platelet Count 222 thou/uL (130-400); Platelet Morphology Comment Appears Adequate; Red Blood Cell (RBC) Count 4.15 mill/uL (4.20-5.40); White Blood Cell (WBC) Count 7.2 thou/uL (4.8-10.8)
[2019-10-09 21:21] LABS: ALT (SGPT) 16 U/L (8-55); AST (SGOT) 26 U/L (5-34); Albumin 3.7 g/dL (3.4-4.8); Alkaline Phosphatase 120 U/L (40-110); Anion Gap 17 mmol/L (10-20); BUN (Urea Nitrogen) 27 mg/dL (9.8-20.1); Bilirubin, Total 0.5 mg/dL (0.2-1.2); Calc. Creatinine Clearance 0 mL/min (70-130); Calcium 8.9 mg/dL (7.8-10.44); Carbon Dioxide 22 mmol/L (23-31); Chloride 99 mmol/L (98-107); Estimated GFR-MDRD 42; Globulin 3.7 g/dL (2.4-3.5); Glucose 228 mg/dL (83-110); Potassium 4.7 mmol/L (3.5-5.1); Protein, Total 7.4 g/dL (6.0-8.3); Sodium 133 mmol/L (136-145)
[2019-10-09] MEDS ORDERED: Fentanyl 100 MCG/2 ML VIAL ONE (21:39)
[2019-10-09] MEDS ORDERED: Diltiazem 125 MG/25 ML ONE (22:04)
--- NOTE | 2019-10-10 07:54 | RAD ---
PORTABLE CHEST: DATE: 10/09/2019. FINDINGS: An AP portable film at 2058 is compared with the 11/02/2018 study. There has been no significant interval change. Mild cardiomegaly is no different than before and the re is no vascular congestion, edema, or pleural effusion. As on prior studies, the right atrium is m ore prominent than is often seen. The heart seems a little more midline even the patient seems to be reasonably positioned. Overall, no change since the prior film. IMPRESSION: Mild cardiomegaly, but no acute finding. POS: HOME
== END 2019-10-09 22:23 | disposition short-term general hospital (02) ==
LOC: BURERS 20:22
DX: A41.9 Sepsis, unspecified organism (principal); L03.116 Cellulitis of left lower limb; L03.115 Cellulitis of right lower limb; I48.91 Unspecified atrial fibrillation; E78.00 Pure hypercholesterolemia, unspecified; E03.9 Hypothyroidism, unspecified; E11.9 Type 2 diabetes mellitus without complications; I11.0 Hypertensive heart disease with heart failure; I50.9 Heart failure, unspecified; Z79.899 Other long term (current) drug therapy; Z79.4 Long term (current) use of insulin; Z79.01 Long term (current) use of anticoagulants
CPT/HCPCS: 36415; 71045; 80053; 83605; 83880; 84484; 85025; 85610; 85730; 87040; 93005; 94760; 96365; 96375; 96376; J3010; J3370